=== PATIENT | male | born 1945 | race Caucasian/White ===

== ENCOUNTER 2021-06-17 15:25 | Inpatient (IN) ==
[2021-06-17 16:27] LABS: Partial Thromboplastin Ratio 0.9; Partial Thromboplastin Time 24.2 Seconds (21.0-31.0); Prothrombin Time 10.3 Seconds (9.0-12.0)
[2021-06-17 16:30] LABS: Alanine Aminotransferase 211 (12-78); Albumin Level 3.8 gm/dl (3.4-5.0); Aspartate Aminotransferase 380 U/L (15-37); BUN Creatinine Ratio 22.5 (10-20); Blood Urea Nitrogen 21 mg/dl (7-18); Calcium 8.6 mg/dl (8.5-10.1); Carbon Dioxide 29 mmol/L (21-32); Chloride 104 mmol/L (98-107); Creatinine Clr Calc Pharmacy 65.4 ml/min; Est GFR (African American) 89.1 ml/min; Est GFR (Non-African American) 76.9 ml/min; Glucose 201 mg/dl (70-99); Potassium 3.9 mmol/L (3.5-5.1); Sodium 135 mmol/L (136-145)
[2021-06-17 16:35] LABS: Albumin Globulin Ratio 1.3 (0.9-2); Alkaline Phosphatase 415 U/L (45-117); Bilirubin,Total 1.5 mg/dl (0.2-1); Globulin 2.9 gm/dl (2.5-4.0); Total Protein 6.7 gm/dl (6.4-8.2); Troponin I < 0.015 ng/ml (0-0.045)
[2021-06-17 16:40] LABS: Basophils # (auto) 0.01 K/uL (0-0.2); Basophils % (auto) 0.2 %; Hematocrit (blood only) 35.3 % (42-52); Lymphocytes # (auto) 0.83 K/uL (1.2-3.4); Mean Corpuscular Hemoglobin 31.3 pg (25-34); Mean Corpuscular Volume 92.2 fL (80-100); Mean Platelet Volume 11.6 fL (7.4-10.4); Monocytes # (auto) 0.13 K/uL (0.11-0.59); Monocytes % (auto) 2.7 %; Neutrophils % (auto) 80.1 %; Platelet Count 77 K/uL (130-400); Platelet Estimate Decreased (Normal); RDW Coefficient of Variation 13.7 % (11.5-14.5); RDW Standard Deviation 46.5 fL (36.4-46.3); Red Blood Count 3.83 M/uL (4.7-6.1); White Blood Count 4.87 K/uL (4.8-10.8)
--- NOTE | 2021-06-17 16:48 | Electrocardiogram Report ---
Test Reason : Blood Pressure : / mmHG Vent. Rate : 071 BPM Atrial Rate : 071 BPM P-R Int : 172 ms QRS Dur : 096 ms QT Int : 428 ms P-R-T Axes : 083 017 044 degrees QTc Int : 465 ms Normal sinus rhythm Possible Left atrial enlargement Left ventricular hypertrophy Abnormal ECG No previous ECGs available Confirmed by Evaristo Mireles ([id number]) on 06/17/2021 4:47:48 PM Referred By: Confirmed By:Tristan Mireles
--- NOTE | 2021-06-17 20:07 | XRay Report ---
XR chest 1V portable CLINICAL HISTORY: Chest pain. COMPARISON STUDY: No previous studies for comparison. TECHNIQUE: 1 view of the chest FINDINGS: Single frontal view of the chest demonstrates the cardiomediastinal silhouette to be within normal li mits. The lungs are clear of alveolar opacities. There is no evidence for pleural effusion. There is no evidence for vascular congestion. There is no acute osseous pathology. IMPRESSION: No acute cardiopulmonary disease. ACT 112: Negative or not required by law. Electronically signed by: Modesto Pizarro M.D. 06/17/2021 8:06 PM
[2021-06-17 20:42] LABS: Bilirubin Direct 0.8 mg/dl (0-0.2)
--- NOTE | 2021-06-17 21:05 | Ultrasound Report ---
US gallbladder LIMITED ABDOMEN CLINICAL HISTORY: cp, elev lfts. COMPARISON: None. TECHNIQUE: Multiple grayscale and color images of the right upper quadrant of the abdomen. FINDINGS: The study is limited by overlying bowel gas. Pancreas: Pancreas is not visualized due to the overlying bowel gas. Liver: The liver is homogeneous in echogenicity there is evidence for a 1.2 x 1.2 x 1.0 cm hyperechoi c area within the right lobe of the liver most characteristic of a small hemangioma. No other evidenc e for liver mass is seen. There is no intrahepatic biliary duct dilatation. The liver is of the upper limits of normal measuring 17 cm the axillary margin. Gallbladder: The gallbladder is mildly distended with numerous intraluminal calculi present. Posteri or acoustic shadowing is seen. There is no evidence for wall thickening. There is minimal pericholecy stic edema. However, there is a negative sonographic East sign. Common Bile Duct: (CBD): It is normal in size measuring 6 mm Inferior Vena Cava (IVC): The imaged IVC is patent. Right kidney: There is no evidence for hydronephrosis, calculus or gross renal mass. The kidney is n ormal in size. IMPRESSION: 1. Nonvisualization of pancreas. 2. Liver is upper limits of normal in size with evidence for small hemangioma. No definite evidence f or hepatocellular disease. 3. Cholelithiasis with minimal pericholecystic edema. However, there is a negative sonographic East 's sign with no definite ultrasound evidence for acute cholecystitis. ACT 112: Negative or not required by law. Electronically signed by: Modesto Pizarro M.D. 06/17/2021 9:03 PM
--- NOTE | 2021-06-17 21:21 | Emergency Department Note ---
Impression & Plan Epigastric abdominal pain, Transaminitis, Cholelithiasis ED Provider Note NAME: VANDA WILLIS AGE: 75 SEX: M ARRIVES VIA: Walk-In INFORMANT: Patient ED PROVIDER(S): Mateusz Dawn MD CHIEF COMPLAINT: Chest pain/abdominal pain PLAN: Disposition: Admit MEDICAL DECISION MAKING: The patient is a pleasant 75-year-old gentleman with a past medical history of hypertension, hyperlipidemia, GERD who presents to the emergency department for evaluation of substernal/epigastric pain that began around noon today and was constant with associated nausea. The patient reports he had to pick his up today at the hospital as she was being discharged after suffering a traumatic fall but his pain was so severe he was referred to the emergency department. He reports since being in the emergency department he felt the symptoms resolve and at this time denies any pain or nausea. He denies any recent fevers, chills, cough, congestion, diarrhea or urinary symptoms. He is vaccinated for COVID-19 including his booster and denies any known COVID-19 exposures. On arrival the patient is in no acute distress, afebrile with blood pressure in the 190s/80s and vital signs otherwise stable. EKG without overt acute ischemia. Chest x-ray negative for acute cardiopulmonary process. WBC within normal limits. H/H 12/35.3 and platelets 77K without prior values for comparison. Chemistry without metabolic acidosis. BUN/creatinine> 20 consistent with the patient's clinically dry appearance. Total bilirubin 1.5 with direct bilirubin 0.8 and AST and ALT 380 and 211, respectively. Alk phos is 415. Troponin negative/undetectable. Lipase is within normal limits. Abdominal ultrasound was performed and demonstrates mildly distended gallbladder with intraluminal calculi with posterior acoustic shadowing. There is minimal pericholecystic edema. CBD is normal in size measuring 6 mm. Note is made of a negative sonographic East sign. Upon reevaluation the patient denied having any pain or nausea at this time. However given the obstructive pattern of his LFTs with ultrasound findings reasonable to admit the patient for further evaluation for suspected choledocholithiasis. Patient agrees with this plan. Case was discussed with Dr. Bella, [facility] hospitalist, who will evaluate the patient for admission. Triage Nursing notes reviewed and agree them. Prior medical records reviewed Vital Signs: reviewed and remarkable for hypertension. Differential diagnosis: Appendicitis, testicular torsion, infections, diverticulitis, UTI, obstruction, mesenteric ischemia, aortic pathology, inflammatory bowel disease, renal colic, PUD, pancreatitis, biliary pathology, hernia, volvulus, constipation, as well as other pathologies. ER treatment provided: See below. Diagnostics interpreted by me: ECG: Normal sinus rhythm, 86 bpm, no ectopy, no overt ST elevation or d epression, QTC 442, QRS 86. Cardiac Monitoring: An order for continuous cardiac monitoring was placed and demonstrated normal sinus rhythm, 86 bpm, no ectopy. Laboratory studies: See below Imaging studies: See below Consultation(s): Case was discussed with Dr. Bella, [facility] hospitalist, who will evaluate the patient for admission. HPI: The patient is a pleasant 75-year-old gentleman with a past medical history of hypertension, hyperlipidemia, GERD who presents to the emergency department for evaluation of substernal/epigastric pain that began around noon today and was constant with associated nausea. The patient reports he had to pick his up today at the hospital as she was being discharged after suffering a traumatic fall but his pain was so severe he was referred to the emergency department. He reports since being in the emergency department he felt the symptoms resolve and at this time denies any pain or nausea. He denies any recent fevers, chills, cough, congestion, diarrhea or urinary symptoms. He is vaccinated for COVID-19 including his booster and denies any known COVID-19 exposures. ROS: See above HPI for pertinent positives & negatives. A total of 10 systems reviewed and were otherwise negative. PAST MEDICAL HISTORY:See Below PAST SURGICAL HISTORY:See Below FAMILY HISTORY:See Below SOCIAL HISTORY:See Below HOME MEDICATIONS:See Below ALLERGIES:See Below VITALS:See Below PHYSICAL EXAMINATION: GENERAL: Awake, alert, well-appearing, in no distress HENT: Normocephalic, atraumatic. Oropharynx with dry mucous membranes and otherwise unremarkable. EYES: Normal conjunctiva. Sclera non-icteric. NECK: Supple. No nuchal rigidity. FROM. No JVD. RESPIRATORY: Clear to auscultation. CARDIAC: Regular rate, normal rhythm. Extremities warm and well perfused. Pulses equal. ABDOMEN: Soft, non-distended. No tenderness to palpation. No rebound or guarding. No masses. RECTAL: Deferred. MUSCULOSKELETAL: Chest examination reveals no tenderness. The back is symmetrical on inspection without obvious abnormality. There is no CVA tenderness to palpation. No joint edema. LOWER EXTREMITIES: Calves are equal size bilaterally and non-tender. No edema. No discoloration. NEURO: Normal sensorium. No sensory or motor deficits noted. SKIN: No rash or jaundice noted. Mateusz Dawn MD Past Med/Surg History Medical History GERD (gastroesophageal reflux disease) Hyperlipidemia Hypertension Family History Other Family history non-contributory Social History Feels Safe at Home: Yes Allergies Allergies Allergy/AdvReac Type Severity Reaction Status Date / Time No Known Allergies Allergy Unverified 06/17/21 20:26 Home Meds Home Medications Medication Instructions Recorded Confirmed atorvastatin 20 mg tablet 20 mg PO DAILY 06/17/21 06/17/21 citalopram 20 mg tablet 20 mg PO DAILY 06/17/21 06/17/21 finasteride 5 mg tablet 5 mg PO DAILY 06/17/21 06/17/21 lisinopril 20 mg tablet 20 mg PO DAILY 06/17/21 06/17/21 omeprazole 20 mg tablet,delayed 20 mg PO DAILY 06/17/21 06/17/21 release Results & Data (ED) Vital Signs Vital Signs - 24 hr 06/17/21 15:28 06/17/21 20:01 06/17/21 21:00 Temperature 37.0 C Temperature Source Temporal Artery Scan Pulse Rate 75 Pulse Rate [Apical] 62 74 Respiratory Rate 18 20 20 Respiratory Effort / Characteristics Non-Labored Spontaneous Non-Labored Spontaneous Respiratory Depth Normal Normal Respiratory Pattern Regular Blood Pressure 193/86 H Blood Pressure [Right Arm] 209/96 H 173/104 H Blood Pressure Mean 121 Blood Pressure Mean [Right Arm] 133 127 Blood Pressure Position Sitting Blood Pressure Position [Right Arm] Sitting Pulse Oximetry 98 100 99 Oxygen Delivery Method Room Air Room Air Room Air Sepsis Recent Fever Within 48 Hours No Sepsis New/Unexplained Change in Mental Status No Sepsis Action Taken by Nursing No Action Required 06/17/21 22:00 Temperature Temperature Source Pulse Rate Pulse Rate [Apical] 63 Respiratory Rate 16 Respiratory Effort / Characteristics Respiratory Depth Respiratory Pattern Blood Pressure Blood Pressure [Right Arm] 153/75 H Blood Pressure Mean Blood Pressure Mean [Right Arm] 101 Blood Pressure Position Blood Pressure Position [Right Arm] Pulse Oximetry 96 Oxygen Delivery Method Room Air Sepsis Recent Fever Within 48 Hours Sepsis New/Unexplained Change in Mental Status Sepsis Action Taken by Nursing Laboratory Data Attestation: I reviewed the patient's lab results. Result diagrams: 06/17/21 16:00 06/17/21 16:00 Lab Results 06/17/21 06/17/21 06/17/21 Range/Units 16:00 16:00 16:00 WBC 4.87 (4.8-10.8) K/uL RBC 3.83 L (4.7-6.1) M/uL Hgb 12.0 L (14.0-18.0) g/dL Hct 35.3 L (42-52) % MCV 92.2 (80-100) fL MCH 31.3 (25-34) pg MCHC 34.0 (32-36) g/dL RDW Std Deviation 46.5 H (36.4-46.3) fL RDW Coeff of [place] 13.7 (11.5-14.5) % Plt Count 77 L (130-400) K/uL MPV 11.6 H (7.4-10.4) fL Immature Gran % (Auto) 0.0 % Neut % (Auto) 80.1 % Lymph % (Auto) 17.0 % Creek % (Auto) 2.7 % Eos % (Auto) 0.0 % Baso % (Auto) 0.2 % Neut # (Auto) 3.90 (1.4-6.5) K/uL Lymph # (Auto) 0.83 L (1.2-3.4) K/uL Creek # (Auto) 0.13 (0.11-0.59) K/uL Eos # (Auto) 0.00 (0-0.5) K/uL Baso # (Auto) 0.01 (0-0.2) K/uL Immature Gran # (Auto) 0.00 (0.00-0.02) K/uL Platelet Estimate Decreased L (Normal) PT 10.3 (9.0-12.0) Seconds INR 1.0 (0.9-1.1) APTT 24.2 (21.0-31.0) Seconds PTT Ratio 0.9 Sodium 135 L (136-145) mmol/L Potassium 3.9 (3.5-5.1) mmol/L Chloride 104 (98-107) mmol/L Carbon Dioxide 29 (21-32) mmol/L Anion Gap 2.0 L (3-11) BUN 21 H (7-18) mg/dl Creatinine 0.95 (0.6-1.4) mg/dl Est Cr Clr Drug Dosing 65.4 ml/min Est GFR ( Amer) 89.1 ml/min Est GFR (Non-Af Amer) 76.9 ml/min BUN/Creatinine Ratio 22.5 H (10-20) Glucose 201 H (70-99) mg/dl Calcium 8.6 (8.5-10.1) mg/dl Total Bilirubin 1.5 H (0.2-1) mg/dl Direct Bilirubin (0-0.2) mg/dl AST 380 H (15-37) U/L ALT 211 H (12-78) Alkaline Phosphatase 415 H (45-117) U/L Troponin I < 0.015 (0-0.045) ng/ml Total Protein 6.7 (6.4-8.2) gm/dl Albumin 3.8 (3.4-5.0) gm/dl Globulin 2.9 (2.5-4.0) gm/dl Albumin/Globulin Ratio 1.3 (0.9-2) Lipase (73-393) U/L SARS-CoV-2, RNA, NAAT (NEGATIVE) 06/17/21 06/17/21 Range/Units 16:00 21:15 WBC (4.8-10.8) K/uL RBC (4.7-6.1) M/uL Hgb (14.0-18.0) g/dL Hct (42-52) % MCV (80-100) fL MCH (25-34) pg MCHC (32-36) g/dL RDW Std Deviation (36.4-46.3) fL RDW Coeff of [place] (11.5-14.5) % Plt Count (130-400) K/uL MPV (7.4-10.4) fL Immature Gran % (Auto) % Neut % (Auto) % Lymph % (Auto) % Creek % (Auto) % Eos % (Auto) % Baso % (Auto) % Neut # (Auto) (1.4-6.5) K/uL Lymph # (Auto) (1.2-3.4) K/uL Creek # (Auto) (0.11-0.59) K/uL Eos # (Auto) (0-0.5) K/uL Baso # (Auto) (0-0.2) K/uL Immature Gran # (Auto) (0.00-0.02) K/uL Platelet Estimate (Normal) PT (9.0-12.0) Seconds INR (0.9-1.1) APTT (21.0-31.0) Seconds PTT Ratio Sodium (136-145) mmol/L Potassium (3.5-5.1) mmol/L Chloride (98-107) mmol/L Carbon Dioxide (21-32) mmol/L Anion Gap (3-11) BUN (7-18) mg/dl Creatinine (0.6-1.4) mg/dl Est Cr Clr Drug Dosing ml/min Est GFR ( Amer) ml/min Est GFR (Non-Af Amer) ml/min BUN/Creatinine Ratio (10-20) Glucose (70-99) mg/dl Calcium (8.5-10.1) mg/dl Total Bilirubin (0.2-1) mg/dl Direct Bilirubin 0.8 H (0-0.2) mg/dl AST (15-37) U/L ALT (12-78) Alkaline Phosphatase (45-117) U/L Troponin I (0-0.045) ng/ml Total Protein (6.4-8.2) gm/dl Albumin (3.4-5.0) gm/dl Globulin (2.5-4.0) gm/dl Albumin/Globulin Ratio (0.9-2) Lipase 188 (73-393) U/L SARS-CoV-2, RNA, NAAT NEGATIVE (NEGATIVE) Administered Medications Sodium Chloride (Nss 1000ml) 1,000 mls @ 125 mls/hr IV .Q8H ETHAN Stop: 07/18/21 01:25 Last Admin: 06/18/21 01:38 Dose: 125 mls/hr Documented by: [id number] Discontinued Medications Al Hydrox/Mg Hydrox/Simethicone (Aluminum/Magnesium/Simeth (Maalox Max) 30 Ml Udc) 30 ml PO NOW STA Stop: 06/18/21 00:44 Last Admin: 06/18/21 01:35 Dose: 30 ml Documented by: [id number] Sodium Chloride (Nss 1000ml) 1,000 mls @ 125 mls/hr IV .Q8H ETHAN Stop: 07/17/21 21:29 Last Admin: 06/17/21 21:36 Dose: 125 mls/hr Documented by: [id number] Imaging Data Radiologist's Impression: Chest X-Ray 06/17/21 19:12 XR chest 1V portable CLINICAL HISTORY: Chest pain. COMPARISON STUDY: No previous studies for comparison. TECHNIQUE: 1 view of the chest FINDINGS: Single frontal view of the chest demonstrates the cardiomediastinal silhouette to be within normal limits. The lungs are clear of alveolar opacities. There is no evidence for pleural effusion. There is no evidence for vascular congestion. There is no acute osseous pathology. IMPRESSION: No acute cardiopulmonary disease. ACT 112: Negative or not required by law. Electronically signed by: Modesto Pizarro M.D. 06/17/2021 8:06 PM Gallbladder Ultrasound 06/17/21 19:12 US gallbladder LIMITED ABDOMEN CLINICAL HISTORY: cp, elev lfts. COMPARISON: None. TECHNIQUE: Multiple grayscale and color images of the right upper quadrant of the abdomen. FINDINGS: The study is limited by overlying bowel gas. Pancreas: Pancreas is not visualized due to the overlying bowel gas. Liver: The liver is homogeneous in echogenicity there is evidence for a 1.2 x 1.2 x 1.0 cm hyperechoic area within the right lobe of the liver most charac teristic of a small hemangioma. No other evidence for liver mass is seen. There is no intrahepatic biliary duct dilatation. The liver is of the upper limits of normal measuring 17 cm the axillary margin. Gallbladder: The gallbladder is mildly distended with numerous intraluminal calculi present. Posterior acoustic shadowing is seen. There is no evidence for wall thickening. There is minimal pericholecystic edema. However, there is a negative sonographic East sign. Common Bile Duct: (CBD): It is normal in size measuring 6 mm Inferior Vena Cava (IVC): The imaged IVC is patent. Right kidney: There is no evidence for hydronephrosis, calculus or gross renal mass. The kidney is normal in size. IMPRESSION: 1. Nonvisualization of pancreas. 2. Liver is upper limits of normal in size with evidence for small hemangioma. No definite evidence for hepatocellular disease. 3. Cholelithiasis with minimal pericholecystic edema. However, there is a negative sonographic East's sign with no definite ultrasound evidence for acute cholecystitis. ACT 112: Negative or not required by law. Electronically signed by: Modesto Pizarro M.D. 06/17/2021 9:03 PM Discharge Plan Visit Data Chief Complaint: Chest Pain Stated Complaint: CHEST PAIN, NAUSEA ED Provider: Mateusz Dawn Discharge Problem: Epigastric abdominal pain, Transaminitis, Cholelithiasis Patient Disposition: Admitted As Inpatient Discharge Instructions Interventions: ED Discharge Assessment Last Done: 06/18/21 00:52 Discharge Problem: Cholelithiasis Qualifiers: Cholelithiasis location: gallbladder Cholecystitis presence: without cholecystitis
[2021-06-17] MEDS ORDERED: ONDANSETRON INJ 2 MG/ML 2 ML VIAL IV PRN (21:25)
[2021-06-17] MEDS ORDERED: SODIUM CHLORIDE 0.9% 1000ML 1,000 ML IV SCH (21:30)
[2021-06-18] MEDS ORDERED: ALUMINUM/MAGNESIUM/SIMETH (MAALOX MAX) 30 ML UDC PO STA (00:43)
[2021-06-18] MEDS ORDERED: PIPERACILL/TAZOBAC CONSULT ACTIVE PRN (01:26)
[2021-06-18] MEDS ORDERED: ACETAMINOPHEN 325 MG TAB PO PRN (01:26)
[2021-06-18] MEDS ORDERED: HYDROmorphone INJ 0.5 MG/0.5 ML SYR IV PRN (01:26)
[2021-06-18] MEDS ORDERED: ONDANSETRON INJ 2 MG/ML 2 ML VIAL IV PRN (01:26)
[2021-06-18] MEDS: SODIUM CHLORIDE 0.9% 1000ML 1,000 ML IV SCH ×3 (01:38→17:07)
[2021-06-18] MEDS ORDERED: PIPERACILLIN/TAZOBACTAM 4.5 GM in DEXTROSE 5% 100 ML IV ONE (01:45)
[2021-06-18] MEDS: FAMOTIDINE 20 MG in SYRINGE 3 ML IV SCH ×3 (02:05→21:52)
[2021-06-18 05:33] LABS: Hematocrit (blood only) 31.7 % (42-52); Hemoglobin 10.8 g/dL (14.0-18.0); Mean Corpuscular Hemoglobin 31.1 pg (25-34); Mean Corpuscular Hgb Conc 34.1 g/dL (32-36); Mean Corpuscular Volume 91.4 fL (80-100); RDW Coefficient of Variation 13.8 % (11.5-14.5); RDW Standard Deviation 45.5 fL (36.4-46.3); Red Blood Count 3.47 M/uL (4.7-6.1); White Blood Count 3.35 K/uL (4.8-10.8)
[2021-06-18 05:54] LABS: Basophils # (auto) 0.02 K/uL (0-0.2); Basophils % (auto) 0.6 %; Lymphocytes # (auto) 1.03 K/uL (1.2-3.4); Lymphocytes % (auto) 30.7 %; Mean Platelet Volume 10.9 fL (7.4-10.4); Monocytes # (auto) 0.27 K/uL (0.11-0.59); Monocytes % (auto) 8.1 %; Neutrophils # (auto) 2.03 K/uL (1.4-6.5); Neutrophils % (auto) 60.6 %; Platelet Count 72 K/uL (130-400); Platelet Estimate Decreased (Normal); RBC Morphology Unremarkable
[2021-06-18 06:07] LABS: Alanine Aminotransferase 174 (12-78); Albumin Level 3.3 gm/dl (3.4-5.0); Alkaline Phosphatase 316 U/L (45-117); Aspartate Aminotransferase 116 U/L (15-37); BUN Creatinine Ratio 20.9 (10-20); Bilirubin Direct 0.4 mg/dl (0-0.2); Bilirubin,Total 1.1 mg/dl (0.2-1); Blood Urea Nitrogen 18 mg/dl (7-18); Calcium 8.6 mg/dl (8.5-10.1); Carbon Dioxide 28 mmol/L (21-32); Chloride 110 mmol/L (98-107); Creatinine Clr Calc Pharmacy 71.3 ml/min; Est GFR (African American) 97.4 ml/min; Glucose 141 mg/dl (70-99); Magnesium 1.8 mg/dl (1.8-2.4); Potassium 3.7 mmol/L (3.5-5.1); Sodium 141 mmol/L (136-145); Total Protein 5.9 gm/dl (6.4-8.2); Troponin I < 0.015 ng/ml (0-0.045)
[2021-06-18] MEDS: PIPERACILLIN/TAZOBACTAM 3.375 GM in DEXTROSE 5% 100 ML IV SCH ×2 (06:48→15:40)
[2021-06-18 07:22] LABS: Estimated Average Glucose 151 mg/dl; Hemoglobin A1C 6.9 % (4.5-5.6)
--- NOTE | 2021-06-18 07:40 | History and Physical Report ---
DATE OF ADMISSION: 06/17/2021. CHIEF COMPLAINT: The patient has epigastric and chest pain. HISTORY OF PRESENT ILLNESS: A 75-year-old male with past medical history significant for type 2 diabetes, hypertension, GERD, BPH, essential tremor, depression, who presents with pain of the chest and also in the epigastric region. The pain started in the afternoon and was constant, associated with nausea. Since in the ER, his symptoms are resolved. The patient is currently resting comfortably and hemodynamically stable. He does not have any pain. Denies any headache, no dizziness, no blurred visions, no earache, no runny nose, no sore throat. No cough. Currently, no nausea. Currently, no chest pain, no shortness of breath, no abdominal pain. Normal bowel and bladder movements. He has some pain in the right thigh region because of the fall about a week ago. ALLERGIES: No known drug allergies. PAST MEDICAL HISTORY: As mentioned above. PAST SURGICAL HISTORY: No past surgical history on file. MEDICATIONS: The patient is on atorvastatin 20 mg p.o. daily, citalopram 20 mg p.o. daily, finasteride 5 mg p.o. daily, lisinopril 20 mg p.o. daily, omeprazole 20 mg p.o. daily, propranolol 40 mg p.o. daily. FAMILY HISTORY: No family history on file. SOCIAL HISTORY: . No smoking. Drinks 3 beers on the weekend.No history of substance abuse. REVIEW OF SYSTEMS: As per HPI. Rest of the review of systems is negative. PHYSICAL EXAMINATION: GENERAL: The patient is of moderate build, not in acute distress. VITAL SIGNS: Temperature 37, pulse 63, respiratory rate 16, blood pressure 153/75, oxygen 96% on room air. HEENT: Pupils equal, round and reactive to light. Oral mucosa moist. NECK: No JVD. No neck masses. CARDIOVASCULAR: S1 and S2 heard. Regular rate and rhythm. No murmur, no gallop. RESPIRATORY SYSTEM: Normal AP diameter. No accessory muscle use. No wheezing, no crackles. ABDOMEN: Soft, bowel sounds present, nontender, no distention. CENTRAL NERVOUS SYSTEM: Cranial nerves II-XII grossly intact, nonfocal. EXTREMITIES: No edema, no erythema. LABORATORY DATA: WBC 4.8, hemoglobin 12, hematocrit 35.3, platelets 77. PT 10.3, INR 1, APTT 24.2. Sodium 135, potassium 3.9, chloride 104, bicarb 29, BUN 21, creatinine 0.9, serum glucose 201, calcium 8.6, total bilirubin 1.5, direct bilirubin 0.8, AST 380, ALT 211, alkaline phosphatase 415. Troponin I less than 0.015. Lipase 188. SARS-CoV-2 negative. IMAGING DATA: Gallbladder ultrasound, liver is in upper limits of normal in size with evidence of small hemangioma. No definite evidence for hepatocellular disease. Cholelithiasis with minimal pericholecystic edema, although there is negative for sonographic East sign, with no definite ultrasound evidence for acute cholecystitis. Chest x-ray, no acute disease. EKG: Normal sinus rhythm at a rate of 71. No previous ECGs available. Possible left ventricular hypertrophy. ASSESSMENT AND PLAN: This 75-year-old male presents with chest pain, epigastric pain, nausea, possible gallbladder disease. 1. Epigastric pain, chest pain, currently resolved: Initial workup with EKG and troponins is negative. Gallbladder ultrasound shows gallstones with minimal pericholecystic edema. No ultrasonic evidence of cholecystitis, but the patient might have possible cholecystitis. We will also rule out any possible CBD stone because of elevated LFTs, with MRCP. Empirically started on Zosyn. Continue IV fluids, n.p.o. Consult GI in the a.m. IV Dilaudid and IV antiemetics p.r.n. Also, we will repeat EKG and repeat troponin in a.m.and echo and cardio consult. 2. History of depression: Continue citalopram. 3. History of hyperlipidemia: Continue statin. 4. Gastroesophageal reflux disease: Continue omeprazole. Placed on IV Pepcid b.i.d. 5. Benign prostatic hypertrophy: Continue finasteride. 6. Hypertension: On lisinopril. 7. Hx essential tremors. No longer on propranolol 8.. Thrombocytopenia: We do not have any old labs to compare. Needs followup. 8. Deep venous thrombosis prophylaxis: Sequential compression devices. DISPOSITION: Closely monitor in the med/tele. PT/OT prior to discharge. Social service to help with discharge planning. Job ID: [id number] [facility]
--- NOTE | 2021-06-18 08:30 | Magnetic Resonance Report ---
MR MRCP CLINICAL HISTORY: elevated lft. Cholelithiasis. Evaluate for cbd stone . Additional chest pain TECHNIQUE: Multiplanar multisequence images of the abdomen were performed without contrast. MRCP aline ges were then generated from source images. COMPARISON: Gallbladder ultrasound from 06/17/2021 FINDINGS: Liver: There is homogeneous signal intensity seen within the liver. No mass lesions are seen. There i s no evidence for intrahepatic or duct dilatation. Suspected small hemangioma on ultrasound is not se en on this study. CT of the liver with hemangioma protocol would be the study of choice for further e valuation. Gallbladder: As seen on ultrasound, the gallbladder is distended with cholelithiasis. There is again no evidence for wall thickening. However, there is pericholecystic edema again seen. Spleen: There is homogeneous signal throughout the splenic parenchyma. No mass lesions are seen. Ther e is splenomegaly with the spleen measuring 14.9 cm in greatest length. Pancreas: The pancreas is homogeneous in signal There is no evidence for a mass lesion. Kidneys: There is homogeneous signal throughout the renal parenchyma bilaterally. The right kidney is rotated in its axis. Adrenal glands: There is homogeneous signal demonstrated with no gross mass seen. Abdominal cavity: There is no gross bowel dilatation. There is no evidence for ascites or adenopathy. The aorta is normal in caliber. The visualized osseous structures, demonstrate no evidence of abnormal signal intensity. MRCP: The common bile duct is normal in course and caliber. There is no evidence for dilatation. Ther e is no intraluminal filling defects or evidence for choledocholithiasis. There is no intrahepatic or duct dilatation. IMPRESSION: 1. Negative MRCP with no evidence for common bile duct dilatation or choledocholithiasis. 2. There is again distention of the gallbladder with cholelithiasis. Mild pericholecystic edema is ag ain seen. If there is clinical concern for acute cholecystitis. Radionuclide hepatobiliary scan would be recommended for further evaluation. 3. Additional nonacute findings are delineated above. ACT 112: Negative or not required by law. Electronically signed by: Modesto Pizarro M.D. 06/18/2021 8:28 AM
--- NOTE | 2021-06-18 08:56 | Cardiology Consultation ---
Date of Consultation June 18, 2021 Assessment & Plan (1) Hypertension: (2) Atypical chest pain: (3) Epigastric abdominal pain: (4) Transaminitis: (5) Cholelithiasis: Patient admitted for atypical chest pain, more likely epigastric pain with elevated LFT's and findings of cholelithiasis. Serial cardiac enzymes unremarkable. EKG without acute changes, findings of LVH. Echo was completed and results pending. No prior evaluation. Long history of hypertension. BP uncontrolled. Increase lisinopril to 40 mg daily. Await GI evaluation and treatment for cholelithiasis. Case discussed with Dr. Wu. Supervising Physician Co-Signing Physician Notes Patient seen and examined with Sarah Downey PA-C. Agree with findings and assessment as above. At this point, I do not see any cardiac component to his chest and abdominal discomfort. We will defer further treatment to our GI colleagues at this time for cholelithiasis History of Present Illness Reason for Consultation: Atypical chest pain Requesting Physician: Dr. Bella Attending Physician: Dr. Wu History of Present Illness Patient is a 75 year old male who has history notable for hypertension, dyslipidemia, DM type II, essential tremors. He denies history of cardiovascular issues. No prior history of CAD, NC, valvular disease, arrhythmias or CHF. He came to ER for complaints of epigastric and chest pain lasting approx 2 days associated with nausea. No vomiting. No aggravating or alleviating factors. Noted mild abdominal pain as well. On arrival, EKG demonstrating NSR with voltage criteria for LVH. no prior EKG for comparioson. Echo was ordered and results pending. Troponin negative x3. Found to have elevated LFT"s. US revealed gallstones. Had MRCP yesterday. GI following. Today at time of consult, patient reports feeling well. Denies recurrent symptoms of chest pain or epigastric pain. Awaiting GI eval and MRCP results. No SOB. NO palpitations. BP has been elevated since admission. He does not monitor BP at home. Takes lisinopril for BP. Previously was taking propranolol for tremors but stopped medication about 2 months ago due to ineffectiveness. No headache or vision changes. No orthopnea, PND or edema. Allergies Allergy/AdvReac Type Severity Reaction Status Date / Time No Known Allergies Allergy Unverified 06/17/21 20:26 Home Medications Medication Instructions Recorded Confirmed Type atorvastatin 20 mg tablet 20 mg PO DAILY 06/17/21 06/17/21 History citalopram 20 mg tablet 20 mg PO DAILY 06/17/21 06/17/21 History finasteride 5 mg tablet 5 mg PO DAILY 06/17/21 06/17/21 History lisinopril 20 mg tablet 20 mg PO DAILY 06/17/21 06/17/21 History omeprazole 20 mg tablet,delayed 20 mg PO DAILY 06/17/21 06/17/21 History release Patient History Medical History GERD (gastroesophageal reflux disease) Hyperlipidemia Hypertension Family History Other Family history non-contributory Social History Smoking Status: Former smoker Second Hand Exposure: No; Do You Dip or Chew Tobacco: No; Hx Alcohol Use: Yes Alcohol type: beer Hx Substance Use: No Preferred Language: [place] Communication Ability: Effective Edge Molder Required: No Beliefs That Will Affect Care: None Current Living Situation: Spouse Other Information That Helps Us Care for You: No Feels Safe at Home: Yes Safety Concerns: Feels Safe At This Time Assistive Devices: None Review of Systems Review of Systems: All systems reviewed & are unremarkable except as noted in HPI & below Physical Exam Constitutional: WD/WN, vitals as above well developed; no acute distress ENMT: external ear and nose normal, oropharynx normal Neck: trachea midline, no thyromegaly Respiratory: normal respiratory effort, lungs clear to auscultation Cardiovascular: Rate/Rhythm: regular rate and regular rhythm Heart Sounds: normal S1 and normal S2; no murmur Vessels: no JVD Extremities: no edema Gastrointestinal (Abdomen): normal bowel sounds, soft, nontender, no hepatosplenomegaly Musculoskeletal: no cyanosis or clubbing, extremities motor strength 5/5 Skin: no rashes, warm and dry Neurologic: PERRL, EOMI, accommodation nl, no face palsy, no dysarthria Psychiatric: A+Ox3, euthymic affect Results & Data ([facility]) Vital Signs (Past 12 Hours) Vital Signs Temp Pulse Resp BP Pulse Ox 12/30/21 03:59 36.8 C 67 18 186/94 H 96 06/18/21 01:20 36.7 C 66 20 186/94 H 96 06/18/21 00:00 36.7 C 74 19 194/80 H 94 06/17/21 22:00 63 16 153/75 H 96 06/17/21 21:00 74 20 173/104 H 99 Laboratory Results 06/18/21 06/18/21 06/18/21 Range/Units 05:16 05:16 05:16 WBC 3.35 L (4.8-10.8) K/uL RBC 3.47 L (4.7-6.1) M/uL Hgb 10.8 L (14.0-18.0) g/dL Hct 31.7 L (42-52) % MCV 91.4 (80-100) fL MCH 31.1 (25-34) pg MCHC 34.1 (32-36) g/dL RDW Std Deviation 45.5 (36.4-46.3) fL RDW Coeff of [place] 13.8 (11.5-14.5) % Plt Count 72 L (130-400) K/uL MPV 10.9 H (7.4-10.4) fL Immature Gran % (Auto) 0.0 % Neut % (Auto) 60.6 % Lymph % (Auto) 30.7 % Woodson % (Auto) 8.1 % Eos % (Auto) 0.0 % Baso % (Auto) 0.6 % Neut # (Auto) 2.03 (1.4-6.5) K/uL Lymph # (Auto) 1.03 L (1.2-3.4) K/uL Woodson # (Auto) 0.27 (0.11-0.59) K/uL Eos # (Auto) 0.00 (0-0.5) K/uL Baso # (Auto) 0.02 (0-0.2) K/uL Immature Gran # (Auto) 0.00 (0.00-0.02) K/uL Platelet Estimate Decreased L (Normal) RBC Morphology Unremarkable PT (9.0-12.0) Seconds INR (0.9-1.1) APTT (21.0-31.0) Seconds PTT Ratio Sodium 141 (136-145) mmol/L Potassium 3.7 (3.5-5.1) mmol/L Chloride 110 H (98-107) mmol/L Carbon Dioxide 28 (21-32) mmol/L Anion Gap 3.0 (3-11) BUN 18 (7-18) mg/dl Creatinine 0.85 (0.6-1.4) mg/dl Est Cr Clr Drug Dosing 71.3 ml/min Est GFR ( Amer) 97.4 ml/min Est GFR (Non-Af Amer) 84.0 ml/min BUN/Creatinine Ratio 20.9 H (10-20) Glucose 141 H (70-99) mg/dl Estimat Average Glucose 151 mg/dl Hemoglobin A1c 6.9 H (4.5-5.6) % Calcium 8.6 (8.5-10.1) mg/dl Magnesium 1.8 (1.8-2.4) mg/dl Total Bilirubin 1.1 H (0.2-1) mg/dl Direct Bilirubin 0.4 H (0-0.2) mg/dl AST 116 H (15-37) U/L ALT 174 H (12-78) Alkaline Phosphatase 316 H D (45-117) U/L Troponin I < 0.015 (0-0.045) ng/ml Total Protein 5.9 L (6.4-8.2) gm/dl Albumin 3.3 L (3.4-5.0) gm/dl Globulin (2.5-4.0) gm/dl Albumin/Globulin Ratio (0.9-2) Lipase (73-393) U/L SARS-CoV-2, RNA, NAAT (NEGATIVE) 06/17/21 06/17/21 06/17/21 Range/Units 21:15 16:00 16:00 WBC (4.8-10.8) K/uL RBC (4.7-6.1) M/uL Hgb (14.0-18.0) g/dL Hct (42-52) % MCV (80-100) fL MCH (25-34) pg MCHC (32-36) g/dL RDW Std Deviation (36.4-46.3) fL RDW Coeff of [place] (11.5-14.5) % Plt Count (130-400) K/uL MPV (7.4-10.4) fL Immature Gran % (Auto) % Neut % (Auto) % Lymph % (Auto) % Woodson % (Auto) % Eos % (Auto) % Baso % (Auto) % Neut # (Auto) (1.4-6.5) K/uL Lymph # (Auto) (1.2-3.4) K/uL Woodson # (Auto) (0.11-0.59) K/uL Eos # (Auto) (0-0.5) K/uL Baso # (Auto) (0-0.2) K/uL Immature Gran # (Auto) (0.00-0.02) K/uL Platelet Estimate (Normal) RBC Morphology PT (9.0-12.0) Seconds INR (0.9-1.1) APTT (21.0-31.0) Seconds PTT Ratio Sodium 135 L (136-145) mmol/L Potassium 3.9 (3.5-5.1) mmol/L Chloride 104 (98-107) mmol/L Carbon Dioxide 29 (21-32) mmol/L Anion Gap 2.0 L (3-11) BUN 21 H (7-18) mg/dl Creatinine 0.95 (0.6-1.4) mg/dl Est Cr Clr Drug Dosing 65.4 ml/min Est GFR ( Amer) 89.1 ml/min Est GFR (Non-Af Amer) 76.9 ml/min BUN/Creatinine Ratio 22.5 H (10-20) Glucose 201 H (70-99) mg/dl Estimat Average Glucose mg/dl Hemoglobin A1c (4.5-5.6) % Calcium 8.6 (8.5-10.1) mg/dl Magnesium (1.8-2.4) mg/dl Total Bilirubin 1.5 H (0.2-1) mg/dl Direct Bilirubin 0.8 H (0-0.2) mg/dl AST 380 H (15-37) U/L ALT 211 H (12-78) Alkaline Phosphatase 415 H (45-117) U/L Troponin I < 0.015 (0-0.045) ng/ml Total Protein 6.7 (6.4-8.2) gm/dl Albumin 3.8 (3.4-5.0) gm/dl Globulin 2.9 (2.5-4.0) gm/dl Albumin/Globulin Ratio 1.3 (0.9-2) Lipase 188 (73-393) U/L SARS-CoV-2, RNA, NAAT NEGATIVE (NEGATIVE) 06/17/21 06/17/21 Range/Units 16:00 16:00 WBC 4.87 (4.8-10.8) K/uL RBC 3.83 L (4.7-6.1) M/uL Hgb 12.0 L (14.0-18.0) g/dL Hct 35.3 L (42-52) % MCV 92.2 (80-100) fL MCH 31.3 (25-34) pg MCHC 34.0 (32-36) g/dL RDW Std Deviation 46.5 H (36.4-46.3) fL RDW Coeff of [place] 13.7 (11.5-14.5) % Plt Count 77 L (130-400) K/uL MPV 11.6 H (7.4-10.4) fL Immature Gran % (Auto) 0.0 % Neut % (Auto) 80.1 % Lymph % (Auto) 17.0 % Woodson % (Auto) 2.7 % Eos % (Auto) 0.0 % Baso % (Auto) 0.2 % Neut # (Auto) 3.90 (1.4-6.5) K/uL Lymph # (Auto) 0.83 L (1.2-3.4) K/uL [place]son # (Auto) 0.13 (0.11-0.59) K/uL Eos # (Auto) 0.00 (0-0.5) K/uL Baso # (Auto) 0.01 (0-0.2) K/uL Immature Gran # (Auto) 0.00 (0.00-0.02) K/uL Platelet Estimate Decreased L (Normal) RBC Morphology PT 10.3 (9.0-12.0) Seconds INR 1.0 (0.9-1.1) APTT 24.2 (21.0-31.0) Seconds PTT Ratio 0.9 Sodium (136-145) mmol/L Potassium (3.5-5.1) mmol/L Chloride (98-107) mmol/L Carbon Dioxide (21-32) mmol/L Anion Gap (3-11) BUN (7-18) mg/dl Creatinine (0.6-1.4) mg/dl Est Cr Clr Drug Dosing ml/min Est GFR ( Amer) ml/min Est GFR (Non-Af Amer) ml/min BUN/Creatinine Ratio (10-20) Glucose (70-99) mg/dl Estimat Average Glucose mg/dl Hemoglobin A1c (4.5-5.6) % Calcium (8.5-10.1) mg/dl Magnesium (1.8-2.4) mg/dl Total Bilirubin (0.2-1) mg/dl Direct Bilirubin (0-0.2) mg/dl AST (15-37) U/L ALT (12-78) Alkaline Phosphatase (45-117) U/L Troponin I (0-0.045) ng/ml Total Protein (6.4-8.2) gm/dl Albumin (3.4-5.0) gm/dl Globulin (2.5-4.0) gm/dl Albumin/Globulin Ratio (0.9-2) Lipase (73-393) U/L SARS-CoV-2, RNA, NAAT (NEGATIVE) Diagnostic Findings Telemetry reviewed - NSR, no arrhythmias EKG reviewed from admission: NSR with voltage criteria for LVH No prior EKG available for review per inpatient/outpatient records Chest xray: IMPRESSION: No acute cardiopulmonary disease US of the Gallbladder: IMPRESSION: 1. Nonvisualization of pancreas. 2. Liver is upper limits of normal in size with evidence for small hemangioma. No definite evidence for hepatocellular disease. 3. Cholelithiasis with minimal pericholecystic edema. However, there is a negative sonographic East's sign with no definite ultrasound evidence for acute cholecystitis. MRCP: IMPRESSION: 1. Negative MRCP with no evidence for common bile duct dilatation or choledocholithiasis. 2. There is again distention of the gallbladder with cholelithiasis. Mild pericholecystic edema is again seen. If there is clinical concern for acute cholecystitis. Radionuclide hepatobiliary scan would be recommended for further evaluation. 3. Additional nonacute findings are delineated above. Medications Administered Current Inpatient Medications Acetaminophen (Acetaminophen 325 Mg Tab) 650 mg PO Q4H PRN PRN Reason: pain/fever Stop: 07/18/21 01:25 Atorvastatin Calcium (Atorvastatin 20 Mg Tab) 20 mg PO DAILY [facility] Stop: 07/18/21 08:59 Citalopram Hydrobromide (Citalopram 20 Mg Tab) 20 mg PO DAILY [facility] Stop: 07/18/21 08:59 Finasteride (Finasteride 5 Mg Tab) 5 mg PO DAILY [facility] Stop: 07/18/21 08:59 Hydromorphone HCl (Hydromorphone Inj 0.5 Mg/0.5 Ml Syr) 0.5 mg IV Q3H PRN PRN Reason: Pain Stop: 07/02/21 01:25 Sodium Chloride (Nss 1000ml) 1,000 mls @ 125 mls/hr IV .Q8H [facility] Stop: 07/18/21 01:25 Last Admin: 06/18/21 01:38 Dose: 125 mls/hr Documented by: Piperacillin Sod/Tazobactam (Sod 3.375 gm/ Dextrose) 115 mls @ 28.75 mls/hr IV Q8H [facility]; Protocol Stop: 06/28/21 07:59 Last Admin: 06/18/21 06:48 Dose: 28.8 mls/hr Documented by: Famotidine 20 mg/ Syringe 5 mls @ 2.5 mls/min IV BID [facility] Stop: 07/18/21 01:25 Last Admin: 06/18/21 02:05 Dose: 2.5 mls/min Documented by: Lisinopril (Lisinopril 20 Mg Tab) 20 mg PO DAILY [facility] Stop: 07/18/21 08:59 Miscellaneous Information (Piperacill/Tazobac Consult Active) 1 ea N/A UD PRN PRN Reason: Consult Stop: 07/18/21 01:25 Ondansetron HCl (Ondansetron Inj 2 Mg/Ml 2 Ml Vial) 4 mg IV Q6H PRN PRN Reason: Nausea Stop: 07/18/21 01:25 Pantoprazole Sodium (Pantoprazole 40 Mg Tab) 40 mg PO DAILY [facility] Stop: 07/18/21 08:59 (1) Cholelithiasis Cholecystitis presence: without cholecystitis Cholelithiasis location: gallbladder
[2021-06-18] MEDS ORDERED: lisinopril 20 MG TAB PO SCH (09:00)
[2021-06-18] MEDS: PANTOprazole 40 MG TAB PO SCH (09:01)
[2021-06-18] MEDS: CITALOPRAM 20 MG TAB PO SCH (09:01)
[2021-06-18] MEDS: ATORVASTATIN 20 MG TAB PO SCH (09:01)
[2021-06-18] MEDS: FINASTERIDE 5 MG TAB PO SCH (09:53)
[2021-06-18] MEDS ORDERED: lisinopril 20 MG TAB PO ONE (10:03)
--- NOTE | 2021-06-18 11:17 | Gastrointestinal Consultation ---
Date of Consultation June 18, 2021 Assessment & Plan (1) Cholelithiasis: Surgical Consult Reviewed with Dr. Sahu and Dr. Enamorado. Recommended that we defer ERCP and await IOC with cholecystectomy. No GI procedures planned. Would keep NPO pending surgery eval. Supervising Physician Co-Signing Physician Notes Attg add: I interviewed and examined pt, reviewed chart and labs. Pt with abrupt onset of chest and abdominal pain, associated with nausea, lasting several hours. No h/o similar symptoms. He has LFTs increased from baseline, and uls + MRCP show gallstones without mj dil and no choloecho on MRCP. On exam, he appears comfortable without abdominal tenderness. A/P Probable choledocholithiasis - His pain is currently resolved, and LFT"s trending down -- it is possible that he has passed a stone, although it is also possible that he is ball-valving a stone, given his persistently normal lipase. D/w Dr. Enamorado -- given his lack of pain, downtrending LFTs, and normal MRCP, will defer EUS. Please consult surgery for maurisio, and would ask surgery service to consider IOC at time of maurisio. Of note, if pt has pain or LFT bump when he resumes PO, please notify us, as will reconsider EUS +/- ERCP. History of Present Illness Reason for Consultation: Cholecystitis? elevated lfts Requesting Physician: Dr. Bella Attending Physician: Amy Chapman, History of Present Illness Mr. Pang is a 75-year-old male patient of Dr. Sousa with a history of DM-2, HTN, GERD, BPH, essential tremor, depression, who was here visiting his yestererday at which time around 1 PM, he experienced the sudden onset of epigastric and lower chest pain, with nausea but no vomiting he did not have fever chills diarrhea or dark urine. He was sent to the emergency department where he was evaluated. On arrival, LFTs were elevated: T bili 1.5 -> 1.1 (today), D bili 0.8 -> 0.4 (today), AST 380 ->116 (today), ALT 211 -> 174. Lipase yesterday was 118->109. US with gallstones but no biliary ductal dilation. MRCP this morning showed normal bile ducts. He is seen and examined while he is resting in bed. He is awake alert and oriented. On exam, he is non tender. He is afebrile, mildly hypertensive (153/81) and He reports that his pain has resolved several hours ago. He is actually requesting to go home as he needs to take care of his who has dementia and was recently discharged from the hospital. Allergies Allergy/AdvReac Type Severity Reaction Status Date / Time No Known Allergies Allergy Unverified 06/17/21 20:26 Home Medications Medication Instructions Recorded Confirmed Type atorvastatin 20 mg tablet 20 mg PO DAILY 06/17/21 06/17/21 History citalopram 20 mg tablet 20 mg PO DAILY 06/17/21 06/17/21 History finasteride 5 mg tablet 5 mg PO DAILY 06/17/21 06/17/21 History lisinopril 20 mg tablet 20 mg PO DAILY 06/17/21 06/17/21 History omeprazole 20 mg tablet,delayed 20 mg PO DAILY 06/17/21 06/17/21 History release Patient History Medical History GERD (gastroesophageal reflux disease) Hyperlipidemia Hypertension Family History Other Family history non-contributory Social History Smoking Status: Former smoker Second Hand Exposure: No; Do You Dip or Chew Tobacco: No; Hx Alcohol Use: Yes Alcohol type: beer Hx Substance Use: No Preferred Language: [place]ik Communication Ability: Effective Sharepoint Architect Required: No Beliefs That Will Affect Care: None Current Living Situation: Spouse Other Information That Helps Us Care for You: No Feels Safe at Home: Yes Safety Concerns: Feels Safe At This Time Assistive Devices: None Review of Systems Review of Systems: ROS: Gen: Denies weakness, fevers, weight loss Eyes: No eye redness, or pain, no recent vision changes Resp: No SOB, no cough Cardio: No palpitations/irregular beats, no chest pain GI: As per HPI otherwise negative : Denies pain on urination Skin: No jaundice, itching or new rashes Physical Exam Constitutional: well developed, + thin and cooperative Eyes: PERRL, conjunctivae normal, anicteric sclerae Respiratory: normal respiratory effort, lungs clear to auscultation Cardiovascular: RRR, no murmur, no edema Gastrointestinal (Abdomen): normal bowel sounds, soft, nontender, no hepatosplenomegaly Skin: no rashes, warm and dry normal turgor Neurologic: PERRL, EOMI, accommodation nl, no face palsy, no dysarthria awake; not confused Psychiatric: A+Ox3, euthymic affect Orientation: alert, oriented x 3 and cooperative Results & Data ([place]) Vital Signs (Past 12 Hours) Vital Signs Temp Pulse Resp BP Pulse Ox 06/18/21 09:00 69 14 153/81 H 96 06/18/21 03:59 36.8 C 67 18 186/94 H 96 06/18/21 01:20 36.7 C 66 20 186/94 H 96 06/18/21 00:00 36.7 C 74 19 194/80 H 94 Laboratory Results WBC 3.35, Hb 10.8, HCT 31.7, PLT S 72, NA 141, K3.7, CL 110, CO2 28, BUN 18, CR 0.83, INR 1.0, See HPI for LFTs and lipase. Diagnostic Findings MRCP 06/18/21: 1. Negative MRCP with no evidence for common bile duct dilatation or choledocholithiasis. 2. There is again distention of the gallbladder with cholelithiasis. Mild pericholecystic edema is again seen. If there is clinical concern for acute cholecystitis. Radionuclide hepatobiliary scan would be recommended for further evaluation. 3. Additional nonacute findings are delineated above. US 06/18/21: 1. Nonvisualization of pancreas. 2. Liver is upper limits of normal in size with evidence for small hemangioma. No definite evidence for hepatocellular disease. 3. Cholelithiasis with minimal pericholecystic edema. However, there is a negative sonographic East's sign with no definite ultrasound evidence for acute cholecystitis. (1) Cholelithiasis Cholecystitis presence: without cholecystitis Cholelithiasis location: gallbladder
--- NOTE | 2021-06-18 16:52 | Hospitalist Progress Note ---
Date of Service June 18, 2021 Assessment & Plan (1) Atypical chest pain: Plan: Possibly related to biliary colic versus pain from elevated blood pressure. His discomfort has now resolved. Awaiting surgical evaluation for possible cholecystectomy. If cholecystectomy is performed GI team would prefer intraoperative cholangiogram to evaluate common bile duct. For now we will let the patient eat pending further surgical recommendations. Patient does not appe ar to have any cardiac etiology of his chest pain, lisinopril was increased to better control blood pressure. (2) Cholelithiasis: Plan: No solid evidence of cholecystitis however gallbladder is distended and will continue Zosyn empirically for now. (3) Transaminitis: Plan: Transaminitis is resolving indicating possible passage of a gallstone. Trend LFTs in a.m. (4) Hypertension: Plan: Elevated, lisinopril increase from 20 mg daily to 40 mg daily. Continue to monitor closely. (5) DVT prophylaxis: Plan: Lovenox Full Code Dispo-pending surgical recommendations. Patient's pain has resolved and he is feeling better. LFTs are trending down. Possible dc tomorrow. Amy Chapman DO [facility] Hospitalist Admission and Anticipated Discharge Date Admission Date: June 17, 2021 Subjective 75-year-old man admitted for atypical chest pain in the setting of hypertension. He was seen by cardiology with no cardiac component to his chest pain. Lisinopril was increased to 40 mg daily for better control. He was seen by GI and has presumed choledocholithiasis. General surgery consultation was recommended. They haven't seen him and he is starving so will order him a diet now. He reports feeling this same epigastric pain associated with food. He currently reports a complete resolution of any discomfort. He states that it would be ideal to do any surgery as outpatient so that he can go home and take care of his who has dementia this weekend. afebrile Review of Systems Review of Systems: All systems were reviewed and negative except as indicated above. Physical Exam Physical Exam: CONSTITUTIONAL: WNWD, vitals as above, generally well- appearing EYES: normal conjunctivae, no scleral icterus ENT: external ear and nose normal, MMM NECK: trachea midline RESPIRATORY: clear to auscultation bilaterally, no crackles, rales or wheezes, normal respiratory effort CARDIOVASCULAR: regular rate and rhythm, S1 and 2 heard without murmurs, gallops or rubs, no JVD, no peripheral edema GASTROINTESTINAL: soft, nontender, ND, no guarding. MUSCULOSKELETAL: strength 5/5 throughout, head is normocephalic and atraumatic, neck supple, normal palpation of chest wall without tenderness SKIN: warm and dry, no rashes NEUROLOGIC: CN 2-12 grossly intact, no sensory deficit, normal cognition, normal speech, no tremor PSYCHIATRIC: alert cooperative and oriented to person, place and time. Euth ymic mood, makes good eye contact, language grossly intact, recent and remote memory grossly intact. Results & Data Results & Data ([facility]) Vital Signs (Past 12 Hours) Vital Signs Pulse Resp BP Pulse Ox 06/18/21 09:00 69 14 153/81 H 96 Laboratory Results Short CBC 06/18/21 Range/Units 05:16 WBC 3.35 L (4.8-10.8) K/uL Hgb 10.8 L (14.0-18.0) g/dL Hct 31.7 L (42-52) % Plt Count 72 L (130-400) K/uL BMP 06/18/21 05:16 Sodium 141 Potassium 3.7 Chloride 110 H Carbon Dioxide 28 BUN 18 Creatinine 0.85 Glucose 141 H Calcium 8.6 Cardiac Enzymes 06/18/21 Range/Units 05:16 Troponin I < 0.015 (0-0.045) ng/ml Liver Function 06/17/21 06/18/21 Range/Units 16:00 05:16 Total Bilirubin 1.1 H (0.2-1) mg/dl Direct Bilirubin 0.8 H 0.4 H (0-0.2) mg/dl AST 116 H (15-37) U/L ALT 174 H (12-78) Alkaline Phosphatase 316 H D (45-117) U/L Albumin 3.3 L (3.4-5.0) gm/dl Diagnostic Findings Cholangiopancreatography MRI 06/18/21 00:03 MR MRCP CLINICAL HISTORY: elevated lft. Cholelithiasis. Evaluate for cbd stone . Additional chest pain TECHNIQUE: Multiplanar multisequence images of the abdomen were performed without contrast. MRCP images were then generated from source images. COMPARISON: Gallbladder ultrasound from 06/17/2021 FINDINGS: Liver: There is homogeneous signal intensity seen within the liver. No mass l esions are seen. There is no evidence for intrahepatic or duct dilatation. Suspected small hemangioma on ultrasound is not seen on this study. CT of the liver with hemangioma protocol would be the study of choice for further evaluation. Gallbladder: As seen on ultrasound, the gallbladder is distended with cholelithiasis. There is again no evidence for wall thickening. However, there is pericholecystic edema again seen. Spleen: There is homogeneous signal throughout the splenic parenchyma. No mass lesions are seen. There is splenomegaly with the spleen measuring 14.9 cm in greatest length. Pancreas: The pancreas is homogeneous in signal There is no evidence for a mass lesion. Kidneys: There is homogeneous signal throughout the renal parenchyma bilaterally. The right kidney is rotated in its axis. Adrenal glands: There is homogeneous signal demonstrated with no gross mass seen. Abdominal cavity: There is no gross bowel dilatation. There is no evidence for ascites or adenopathy. The aorta is normal in caliber. The visualized osseous structures, demonstrate no evidence of abnormal signal intensity. MRCP: The common bile duct is normal in course and caliber. There is no evidence for dilatation. There is no intraluminal filling defects or evidence for choledocholithiasis. There is no intrahepatic or duct dilatation. IMPRESSION: 1. Negative MRCP with no evidence for common bile duct dilatation or choledocholithiasis. 2. There is again distention of the gallbladder with cholelithiasis. Mild pericholecystic edema is again seen. If there is clinical concern for acute cholecystitis. Radionuclide hepatobiliary scan would be recommended for further evaluation. 3. Additional nonacute findings are delineated above. ACT 112: Negative or not required by law. Electronically signed by: Modesto Pizarro M.D. 06/18/2021 8:28 AM Medications Administered Current Inpatient Medications Acetaminophen (Acetaminophen 325 Mg Tab) 650 mg PO Q4H PRN PRN Reason: pain/fever Stop: 07/18/21 01:25 Atorvastatin Calcium (Atorvastatin 20 Mg Tab) 20 mg PO DAILY [facility] Stop: 07/18/21 08:59 Last Admin: 06/18/21 09:01 Dose: 20 mg Documented by: Citalopram Hydrobromide (Citalopram 20 Mg Tab) 20 mg PO DAILY [facility] Stop: 07/18/21 08:59 Last Admin: 06/18/21 09:01 Dose: 20 mg Documented by: Finasteride (Finasteride 5 Mg Tab) 5 mg PO DAILY [facility] Stop: 07/18/21 08:59 Last Admin: 06/18/21 09:53 Dose: 5 mg Documented by: Hydromorphone HCl (Hydromorphone Inj 0.5 Mg/0.5 Ml Syr) 0.5 mg IV Q3H PRN PRN Reason: Pain Stop: 07/02/21 01:25 Sodium Chloride (Nss 1000ml) 1,000 mls @ 125 mls/hr IV .Q8H [facility] Stop: 07/18/21 01:25 Last Admin: 06/18/21 09:53 Dose: 125 mls/hr Documented by: Piperacillin Sod/Tazobactam (Sod 3.375 gm/ Dextrose) 115 mls @ 28.75 mls/hr IV Q8H [facility]; Protocol Stop: 06/28/21 07:59 Last Admin: 06/18/21 15:40 Dose: 28.8 mls/hr Documented by: Famotidine 20 mg/ Syringe 5 mls @ 2.5 mls/min IV BID [facility] Stop: 07/18/21 01:25 Last Admin: 06/18/21 09:01 Dose: 2.5 mls/min Documented by: Lisinopril (Lisinopril 40 Mg Tab) 40 mg PO DAILY [facility] Stop: 07/19/21 08:59 Miscellaneous Information (Piperacill/Tazobac Consult Active) 1 ea N/A UD PRN PRN Reason: Consult Stop: 07/18/21 01:25 Ondansetron HCl (Ondansetron Inj 2 Mg/Ml 2 Ml Vial) 4 mg IV Q6H PRN PRN Reason: Nausea Stop: 07/18/21 01:25 Pantoprazole Sodium (Pantoprazole 40 Mg Tab) 40 mg PO DAILY [facility] Stop: 07/18/21 08:59 Last Admin: 06/18/21 09:01 Dose: 40 mg Documented by: (1) Cholelithiasis Cholecystitis presence: without cholecystitis Cholelithiasis location: gallbladder
--- NOTE | 2021-06-18 18:25 | Electrocardiogram Report ---
Test Reason : Blood Pressure : / mmHG Vent. Rate : 062 BPM Atrial Rate : 062 BPM P-R Int : 184 ms QRS Dur : 094 ms QT Int : 460 ms P-R-T Axes : 066 011 028 degrees QTc Int : 466 ms Normal sinus rhythm Nonspecific T wave abnormality Prolonged QT Abnormal ECG When compared with ECG of 17-JUN-2021 15:58, No significant change was found Confirmed by Evaristo Mireles ([id number]) on 06/18/2021 6:25:20 PM Referred By: REFERRED SELF Confirmed By:Tristan Mireles
[2021-06-18] MEDS ORDERED: hydrALAZINE HCL 20 MG/ML VIAL IV STA (21:49)
[2021-06-18] MEDS ORDERED: ENOXAPARIN INJ 40 MG/0.4 ML SYR SQ SCH (22:15)
[2021-06-19] MEDS: PIPERACILLIN/TAZOBACTAM 3.375 GM in DEXTROSE 5% 100 ML IV SCH ×3 (00:15→15:54)
[2021-06-19] MEDS ORDERED: cloNIDine HCL 0.1 MG TAB PO ONE (03:32)
[2021-06-19] MEDS: SODIUM CHLORIDE 0.9% 1000ML 1,000 ML IV SCH ×2 (07:02→10:04)
[2021-06-19] MEDS: CITALOPRAM 20 MG TAB PO SCH (07:59)
[2021-06-19] MEDS: ATORVASTATIN 20 MG TAB PO SCH (07:59)
[2021-06-19] MEDS: FINASTERIDE 5 MG TAB PO SCH (07:59)
[2021-06-19] MEDS: PANTOprazole 40 MG TAB PO SCH (08:00)
[2021-06-19 08:02] LABS: Hematocrit (blood only) 32.9 % (42-52); Hemoglobin 11.2 g/dL (14.0-18.0); Mean Corpuscular Hemoglobin 30.9 pg (25-34); Mean Corpuscular Volume 90.9 fL (80-100); RDW Coefficient of Variation 13.7 % (11.5-14.5); RDW Standard Deviation 45.5 fL (36.4-46.3); Red Blood Count 3.62 M/uL (4.7-6.1)
[2021-06-19] MEDS: FAMOTIDINE 20 MG in SYRINGE 3 ML IV SCH (08:02)
[2021-06-19 08:23] LABS: Mean Platelet Volume 11.2 fL (7.4-10.4); Platelet Count 69 K/uL (130-400)
--- NOTE | 2021-06-19 08:33 | Hospitalist Progress Note ---
Date of Service June 19, 2021 Assessment & Plan (1) Atypical chest pain: Plan: Possibly related to biliary colic versus pain from elevated blood pressure. His discomfort has now resolved. Seen by gen.surgery service - plan for outpt follow up and possible chol ecystectomy. Patient does not appear to have any cardiac etiology of his chest pain, lisinopril was increased to better control blood pressure. (2) Cholelithiasis: Plan: No solid evidence of cholecystitis however gallbladder is distended and Zosyn was continued empirically. (3) Transaminitis: Plan: Transaminitis is resolving indicating possible passage of a gallstone. No further work-up planned per GI (4) Hypertension: Plan: Elevated, lisinopril increased from 20 mg daily to 40 mg daily. Started small dose amlodipine. Pt to follow up with PCP on Tuesday. Pt's son obtained blood pressure cuff so can monitor BP at home as well. (5) DVT prophylaxis: Plan: Lovenox Full Code Dispo- plan to DC home today. Plan for close follow up with pcp and gen. surgery Admission and Anticipated Discharge Date Admission Date: June 17, 2021 Subjective 75 yo M admitted for atypical chest pain in the setting of hypertension. He was seen by cardiology with no cardiac component to his chest pain. Lisinopril was increased to 40 mg daily for better BP control. He was seen by GI for presumed choledocholithiasis/ elevated LFTs. LFTs trending down, no further work-up at this time. General surgery recommends outpt follow up within 2 weeks for cholecystectomy. Pt reports resolution of symptoms. No chest pain, no abd. pain. Tolerating food. No fever, chills, nausea, vomiting. He is eager to be discharged - wants to be home for his who has dementia. Pt's son at the bedside - discussed close follow up with pcp and gen. surgery. Review of Systems Review of Systems: All systems reviewed & are unremarkable except as noted in Subjective Physical Exam Physical Exam: CONSTITUTIONAL: WNWD, elderly M in NAD EYES: EOMI, PERRL, normal conjunctivae, no scleral icterus ENT: external ear and nose normal, MMM NECK: supple RESPIRATORY: clear to auscultation bilaterally, no crackles, rales or wheezes, normal respiratory effort CARDIOVASCULAR: regular rate and rhythm, S1 and 2 heard without murmurs, gallops or rubs, no JVD, no peripheral edema GASTROINTESTINAL: soft, nontender, ND, no guarding. MUSCULOSKELETAL: strength 5/5 throughout, head is normocephalic and atraumatic, neck supple SKIN: warm and dry, no rashes NEUROLOGIC: alert and oriented, answering questions appropriately, no facial asymmetry, speech fluent, moves extremities PSYCHIATRIC: Euthymic mood Results & Data Results & Data ([facility]) Vital Signs (Past 12 Hours) Vital Signs Temp Pulse Pulse Resp BP BP Pulse Ox 06/19/21 06:05 152/77 H 06/19/21 03:05 66 06/19/21 02:56 36.3 C L 77 20 194/77 H 97 06/19/21 00:11 36.7 C 64 16 184/78 H 96 06/18/21 22:48 171/91 H 06/18/21 21:46 36.8 C 68 20 181/96 H 96 Laboratory Results 06/19/21 06/19/21 Range/Units 07:30 07:30 WBC 2.70 L (4.8-10.8) K/uL RBC 3.62 L (4.7-6.1) M/uL Hgb 11.2 L (14.0-18.0) g/dL Hct 32.9 L (42-52) % MCV 90.9 (80-100) fL MCH 30.9 (25-34) pg MCHC 34.0 (32-36) g/dL RDW Std Deviation 45.5 (36.4-46.3) fL RDW Coeff of [place] 13.7 (11.5-14.5) % Plt Count 69 L (130-400) K/uL MPV 11.2 H (7.4-10.4) fL Sodium 142 (136-145) mmol/L Potassium 3.6 (3.5-5.1) mmol/L Chloride 110 H (98-107) mmol/L Carbon Dioxide 27 (21-32) mmol/L Anion Gap 5.0 (3-11) BUN 16 (7-18) mg/dl Creatinine 0.90 (0.6-1.4) mg/dl Est Cr Clr Drug Dosing 67.4 ml/min Est GFR ( Amer) 95.1 ml/min Est GFR (Non-Af Amer) 82.1 ml/min BUN/Creatinine Ratio 17.2 (10-20) Glucose 141 H (70-99) mg/dl Calcium 8.6 (8.5-10.1) mg/dl Phosphorus 3.4 (2.5-4.9) mg/dl Magnesium 2.0 (1.8-2.4) mg/dl Total Bilirubin 0.8 (0.2-1) mg/dl Direct Bilirubin 0.2 (0-0.2) mg/dl AST 41 H (15-37) U/L ALT 108 H (12-78) Alkaline Phosphatase 248 H D (45-117) U/L Total Protein 6.0 L (6.4-8.2) gm/dl Albumin 3.3 L (3.4-5.0) gm/dl Medications Administered Current Inpatient Medications Acetaminophen (Acetaminophen 325 Mg Tab) 650 mg PO Q4H PRN PRN Reason: pain/fever Stop: 07/18/21 01:25 Atorvastatin Calcium (Atorvastatin 20 Mg Tab) 20 mg PO DAILY [facility] Stop: 07/18/21 08:59 Last Admin: 06/19/21 07:59 Dose: 20 mg Documented by: Citalopram Hydrobromide (Citalopram 20 Mg Tab) 20 mg PO DAILY [facility] Stop: 07/18/21 08:59 Last Admin: 06/19/21 07:59 Dose: 20 mg Documented by: Enoxaparin Sodium (Enoxaparin Inj 40 Mg/0.4 Ml Syr) 40 mg SQ HS [facility] Stop: 07/18/21 22:14 Last Admin: 06/18/21 22:50 Dose: 40 mg Documented by: Finasteride (Finasteride 5 Mg Tab) 5 mg PO DAILY [facility] Stop: 07/18/21 08:59 Last Admin: 06/19/21 07:59 Dose: 5 mg Documented by: Hydromorphone HCl (Hydromorphone Inj 0.5 Mg/0.5 Ml Syr) 0.5 mg IV Q3H PRN PRN Reason: Pain Stop: 07/02/21 01:25 Sodium Chloride (Nss 1000ml) 1,000 mls @ 125 mls/hr IV .Q8H [facility] Stop: 07/18/21 01:25 Last Infusion: 06/19/21 07:03 Dose: Infused Documented by: Piperacillin Sod/Tazobactam (Sod 3.375 gm/ Dextrose) 115 mls @ 28.75 mls/hr IV Q8H [facility]; Protocol Stop: 06/28/21 07:59 Last Admin: 06/19/21 08:02 Dose: 28.8 mls/hr Documented by: Famotidine 20 mg/ Syringe 5 mls @ 2.5 mls/min IV BID [facility] Stop: 07/18/21 01:25 Last Admin: 06/19/21 08:02 Dose: 2.5 mls/min Documented by: Lisinopril (Lisinopril 40 Mg Tab) 40 mg PO DAILY [facility] Stop: 07/19/21 08:59 Last Admin: 06/19/21 07:59 Dose: 40 mg Documented by: Miscellaneous Information (Piperacill/Tazobac Consult Active) 1 ea N/A UD PRN PRN Reason: Consult Stop: 07/18/21 01:25 Ondansetron HCl (Ondansetron Inj 2 Mg/Ml 2 Ml Vial) 4 mg IV Q6H PRN PRN Reason: Nausea Stop: 07/18/21 01:25 Pantoprazole Sodium (Pantoprazole 40 Mg Tab) 40 mg PO DAILY [facility] Stop: 07/18/21 08:59 Last Admin: 06/19/21 08:00 Dose: 40 mg Documented by: (1) Cholelithiasis Cholecystitis presence: without cholecystitis Cholelithiasis location: gallbladder
[2021-06-19 08:48] LABS: Albumin Level 3.3 gm/dl (3.4-5.0); BUN Creatinine Ratio 17.2 (10-20); Bilirubin Direct 0.2 mg/dl (0-0.2); Calcium 8.6 mg/dl (8.5-10.1); Creatinine Clr Calc Pharmacy 67.4 ml/min; Est GFR (African American) 95.1 ml/min; Est GFR (Non-African American) 82.1 ml/min; Phosphorus 3.4 mg/dl (2.5-4.9); Potassium 3.6 mmol/L (3.5-5.1)
[2021-06-19] MEDS ORDERED: lisinopril 40 MG TAB PO SCH (09:00)
[2021-06-19 09:05] LABS: Bilirubin,Total 0.8 mg/dl (0.2-1)
--- NOTE | 2021-06-19 09:54 | Communication Note ---
Date of Service: June 19, 2021 LFTs continue to trend downward. No plan for EUS/ERCP. Follow daily LFTs
[2021-06-19] MEDS ORDERED: POTASSIUM CHLORIDE CRTAB 20 MEQ TABCR PO STA (11:44)
--- NOTE | 2021-06-19 11:56 | Surgery Consultation ---
Date of Consultation June 19, 2021 Assessment & Plan (1) Transaminitis: This is a 75yM with PMH of HTN, HLD, DM who presented to the [facility] ED on 06/17/21 with complaints of chest and epigastric pain. Workup in the ER with a RUQ US showed + cholelithiasis with minimal pericholecystic edema, with no definite ultrasound evidence for acute cholecystitis. MRCP which showed no evidence for common bile duct dilatation or choledocholithiasis, along with distention of the gallbladder with cholelithiasis. LFT's on admission were elevated but have been downtrending- Tb: 0.8 (1.1), AST: 41(116), ALT: 108 (174), AlkP: 248 (316). GI not performing ERCP based on MRCP and downtrending LFTs. He does not have an elevated WBC (2.7). He is hypertensive, but otherwise HR is stable and he is afebrile. On examination patient's abdomen is soft without tenderness in the RUQ or epigastric region. At this time there is no convincing evidence of cholecystitis it would be reasonable patient can be discharged to home. Given patient's cholelithiasis and initial elevation LFTs on admission it is possible he may have passed a stone. We would recommend patient be evaluated as an outpatient within 2 weeks for follow up and discussion of cholecystectomy. Patient was given return precautions should he develop fevers, nausea/vomiting, worsening and constant abdominal pain to come into the ER and he demonstrated understanding. (2) Cholelithiasis: History of Present Illness Attending Physician: Igor Muñoz MD History of Present Illness This is a 75yM with PMH of HTN, HLD, DM who presented to the [facility] ED on 06/17/21 with complaints of chest and epigastric pain. Patient reports his symptoms developed on 06/17 around 11am. 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 He reports waxing/waning pain into the chest/epigastric region associated with nausea. Workup in the ER with a RUQ US showed + cholelithiasis with minimal pericholecystic edema, with no definite ultrasound evidence for acute cholecystitis. LFTS were elevated prompting a GI consult and MRCP which showed no evidence for common bile duct dilatation or choledocholithiasis, along with distention of the gallbladder with cholelithiasis. Patient states he has a history of reflux, but this is the first time he has ever felt pain like this. He denies fevers/chills, vomiting, or change in bowel habits. He has no past abdominal surgical history. He states he did eat roast beef and potatoes last night for dinner without return of symptoms. He feels vastly improved today. 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 Allergies Allergy/AdvReac Type Severity Reaction Status Date / Time No Known Allergies Allergy Unverified 06/17/21 20:26 Home Medications Medication Instructions Recorded Confirmed Type atorvastatin 20 mg tablet 20 mg PO DAILY 06/17/21 06/17/21 History citalopram 20 mg tablet 20 mg PO DAILY 06/17/21 06/17/21 History finasteride 5 mg tablet 5 mg PO DAILY 06/17/21 06/17/21 History lisinopril 20 mg tablet 20 mg PO DAILY 06/17/21 06/17/21 History omeprazole 20 mg tablet,delayed 20 mg PO DAILY 06/17/21 06/17/21 History release Patient History Medical History GERD (gastroesophageal reflux disease) Hyperlipidemia Hypertension Family History Other Family history non-contributory Social History Smoking Status: Former smoker Second Hand Exposure: No; Hx Alcohol Use: Yes Alcohol type: beer Hx Substance Use: No Preferred Language: Chinese Communication Ability: Effective Signaling Design Engineer Required: No Beliefs That Will Affect Care: None Current Living Situation: Spouse Feels Safe at Home: Yes Assistive Devices: None Review of Systems Constitutional: no fever and no chills Respiratory: no dyspnea Cardiovascular: + chest pain Gastrointestinal: + abdominal pain, + heartburn and + nausea; no vomiting and no change in bowel habits Musculoskeletal: no back pain Physical Exam Physical Exam: awake/alert Constitutional: well developed and well nourished; no acute distress Respiratory: normal respiratory effort Gastrointestinal (Abdomen): Percussion/Palpation: abdomen soft; abdomen nontender Results & Data ([facility]) Vital Signs (Past 12 Hours) Vital Signs Temp Pulse Pulse Pulse Resp BP BP 06/19/21 11:00 36.6 C 62 18 183/87 H 06/19/21 07:00 36.3 C L 72 18 161/82 H 06/19/21 06:05 152/77 H 06/19/21 03:05 66 06/19/21 02:56 36.3 C L 77 20 194/77 H 06/19/21 00:11 36.7 C 64 16 184/78 H Pulse Ox 06/19/21 11:00 97 06/19/21 07:00 95 06/19/21 06:05 06/19/21 03:05 06/19/21 02:56 97 06/19/21 00:11 96 Diagnostic Findings US gallbladder LIMITED ABDOMEN CLINICAL HISTORY: cp, elev lfts. COMPARISON: None. TECHNIQUE: Multiple grayscale and color images of the right upper quadrant of the abdomen. FINDINGS: The study is limited by overlying bowel gas. Pancreas: Pancreas is not visualized due to the overlying bowel gas. Liver: The liver is homogeneous in echogenicity there is evidence for a 1.2 x 1.2 x 1.0 cm hyperechoic area within the right lobe of the liver most characteristic of a small hemangioma. No other evidence for liver mass is seen. There is no intrahepatic biliary duct dilatation. The liver is of the upper limits of normal measuring 17 cm the axillary margin. Gallbladder: The gallbladder is mildly distended with numerous intraluminal calculi present. Posterior acoustic shadowing is seen. There is no evidence for wall thickening. There is minimal pericholecystic edema. However, there is a negative sonographic East sign. Common Bile Duct: (CBD): It is normal in size measuring 6 mm Inferior Vena Cava (IVC): The imaged IVC is patent. Right kidney: There is no evidence for hydronephrosis, calculus or gross renal mass. The kidney is normal in size. IMPRESSION: 1. Nonvisualization of pancreas. 2. Liver is upper limits of normal in size with evidence for small hemangioma. No definite evidence for hepatocellular disease. 3. Cholelithiasis with minimal pericholecystic edema. However, there is a negative sonographic East's sign with no definite ultrasound evidence for acute cholecystitis. ACT 112: Negative or not required by law. Electronically signed by: Modesto Pizarro M.D. 06/17/2021 9:03 PM MR MRCP CLINICAL HISTORY: elevated lft. Cholelithiasis. Evaluate for cbd stone . Additional chest pain TECHNIQUE: Multiplanar multisequence images of the abdomen were performed without contrast. MRCP images were then generated from source images. COMPARISON: Gallbladder ultrasound from 06/17/2021 FINDINGS: Liver: There is homogeneous signal intensity seen within the liver. No mass lesions are seen. There is no evidence for intrahepatic or duct dilatation. Suspected small hemangioma on ultrasound is not seen on this study. CT of the liver with hemangioma protocol would be the study of choice for further evaluation. Gallbladder: As seen on ultrasound, the gallbladder is distended with cholelithiasis. There is again no evidence for wall thickening. However, there is pericholecystic edema again seen. Spleen: There is homogeneous signal throughout the splenic parenchyma. No mass lesions are seen. There is splenomegaly with the spleen measuring 14.9 cm in greatest length. Pancreas: The pancreas is homogeneous in signal There is no evidence for a mass lesion. Kidneys: There is homogeneous signal throughout the renal parenchyma bilaterally. The right kidney is rotated in its axis. Adrenal glands: There is homogeneous signal demonstrated with no gross mass seen. Abdominal cavity: There is no gross bowel dilatation. There is no evidence for ascites or adenopathy. The aorta is normal in caliber. The visualized osseous structures, demonstrate no evidence of abnormal signal intensity. MRCP: The common bile duct is normal in course and caliber. There is no evidence for dilatation. There is no intraluminal filling defects or evidence for choledocholithiasis. There is no intrahepatic or duct dilatation. IMPRESSION: 1. Negative MRCP with no evidence for common bile duct dilatation or choledocholithiasis. 2. There is again distention of the gallbladder with cholelithiasis. Mild pericholecystic edema is again seen. If there is clinical concern for acute cholecystitis. Radionuclide hepatobiliary scan would be recommended for further evaluation. 3. Additional nonacute findings are delineated above. ACT 112: Negative or not required by law. Electronically signed by: Modesto Pizarro M.D. 06/18/2021 8:28 AM PG Care Time/CCT Total # of Minutes Spent Total Time Spent with Patient: Total time spent is greater than 50% in coordination of care (as documented) at patient's floor/unit and/or counseling patient: Coding Level of Care Code 27531 Initial Inpt Care Lvl 1 Diagnoses Transaminitis R74.01 Cholelithiasis K80.20 Cholecystitis presence: without cholecystitis Cholelithiasis location: gallbladder (1) Cholelithiasis Cholecystitis presence: without cholecystitis Cholelithiasis location: gallbladder
[2021-06-19] MEDS ORDERED: hydrALAZINE HCL 20 MG/ML VIAL IV ONE (13:03)
[2021-06-19] MEDS ORDERED: hydrALAZINE HCL 20 MG/ML VIAL IV PRN (13:04)
[2021-06-19] MEDS ORDERED: amLODIPine BESYLATE 5 MG TAB PO ONE (13:15)
--- NOTE | 2021-06-20 01:18 | Discharge Summary ---
Date of Service June 20, 2021 Admission HPI Per Admitting Provider A 75-year-old male with past medical history significant for type 2 diabetes, hypertension, GERD, BPH, essential tremor, depression, who presents with pain of the chest and also in the epigastric region. The pain started in the afternoon and was constant, associated with nausea. Since in the ER, his symptoms are resolved. The patient is currently resting comfortably and hemodynamically stable. He does not have any pain. Denies any headache, no dizziness, no blurred visions, no earache, no runny nose, no sore throat. No cough. Currently, no nausea. Currently, no chest pain, no shortness of breath, no abdominal pain. Normal bowel and bladder movements. He has some pain in the right thigh region because of the fall about a week ago. Admission Exam Per Admitting Provider GENERAL: The patient is of moderate build, not in acute distress. VITAL SIGNS: Temperature 37, pulse 63, respiratory rate 16, blood pressure 153/75, oxygen 96% on room air. HEENT: Pupils equal, round and reactive to light. Oral mucosa moist. NECK: No JVD. No neck masses. CARDIOVASCULAR: S1 and S2 heard. Regular rate and rhythm. No murmur, no wolfe p. RESPIRATORY SYSTEM: Normal AP diameter. No accessory muscle use. No wheezing, no crackles. ABDOMEN: Soft, bowel sounds present, nontender, no distention. CENTRAL NERVOUS SYSTEM: Cranial nerves II-XII grossly intact, nonfocal. EXTREMITIES: No edema, no erythema. Principal Diagnosis Cholelithiasis Elevated LFTs Abdominal pain Atypical chest pain Hypertension Discharge Exam CONSTITUTIONAL: WNWD, elderly M in NAD EYES: EOMI, PERRL, normal conjunctivae, no scleral icterus ENT: external ear and nose normal, MMM NECK: supple RESPIRATORY: clear to auscultation bilaterally, no crackles, rales or wheezes, normal respiratory effort CARDIOVASCULAR: regular rate and rhythm, S1 and 2 heard without murmurs, gallops or rubs, no JVD, no peripheral edema GASTROINTESTINAL: soft, nontender, ND, no guarding. MUSCULOSKELETAL: strength 5/5 throughout, head is normocephalic and atraumatic, neck supple SKIN: warm and dry, no rashes NEUROLOGIC: alert and oriented, answering questions appropriately, no facial asymmetry, speech fluent, moves extremities PSYCHIATRIC: Euthymic mood Discharge Data Allergies Allergy/AdvReac Type Severity Reaction Status Date / Time No Known Allergies Allergy Unverified 06/17/21 20:26 Consultations 06/17/21 21:27 ED Decision to Admit Stat 06/18/21 08:00 Consult Cardiology Routine Consult Gastroenterology Routine 06/18/21 10:15 Consult General Surgery Routine Ordered Studies 06/17/21 19:12 US gallbladder Stat IMPRESSION: 1. Nonvisualization of pancreas. 2. Liver is upper limits of normal in size with evidence for small hemangioma. No definite evidence for hepatocellular disease. 3. Cholelithiasis with minimal pericholecystic edema. However, there is a negative sonographic East's sign with no definite ultrasound evidence for acute cholecystitis. 06/18/21 00:03 MR MRCP Urgent IMPRESSION: 1. Negative MRCP with no evidence for common bile duct dilatation or choledocholithiasis. 2. There is again distention of the gallbladder with cholelithiasis. Mild pericholecystic edema is again seen. If there is clinical concern for acute cholecystitis. Radionuclide hepatobiliary scan would be recommended for further evaluation. 3. Additional nonacute findings are delineated above. Hospital Course (1) Atypical chest pain: Possibly related to biliary colic versus pain from elevated blood pressure. His discomfort has now resolved. Seen by gen.surgery service - plan for outpt follow up and possible cholecystectomy. Patient does not appear to have any cardiac etiology of his chest pain, lisinopril was increased to better control blood pressure. (2) Cholelithiasis: No solid evidence of cholecystitis however gallbladder is distended and Zosyn was continued empirically. (3) Transaminitis: Transaminitis is resolving indicating possible passage of a gallstone. No further work-up planned per GI (4) Hypertension: Elevated, lisinopril increased from 20 mg daily to 40 mg daily. Started small dose amlodipine. Pt to follow up with PCP on Tuesday. Pt's son obtained blood pressure cuff so can monitor BP at home as well. (5) DVT prophylaxis: Lovenox Dispo- plan to DC home today. Plan for close follow up with pcp and gen. surgery Total Time Total Time Spent Total Time Spent (In Minutes): 40 Discharge Plan Discharge Items Patient Disposition: Home - Self-Care Reason For Visit: ABDOMINAL PAIN Discharge Diagnosis: Abdominal pain Cholelithiasis Elevated LFTs Atypical chest pain Hypertension Activity: Per Instructions section Non-emergency contact: Primary Care Provider and Surgeon Call non-emergency contact if: you have any medication questions and your symptoms worsen Follow-up/Referrals: Abhinav Young DO [Physician] - (Please call to schedule follow up in clinic within 2 weeks) Latonia Sousa MD [Primary Care Provider] - Diet: Low Fat Addtl Attending Provider Instructions: Follow up with your primary care doctor within 1 week. If you can, monitor your blood pressure at home, and write down your numbers. It is important that you discuss further with your primary care physician if/how your blood pressure medications should be adjusted. Your lisinopril was increased to 40 mg daily, you were also started on a new medication, called amlodipine. Take them as prescribed. Please follow-up with general surgery, to schedule your surgery for gallbladder. Finish antibiotic treatment, with Augmentin, as prescribed. Pending Studies at Discharge: No Stand-Alone Forms: My [facility] [employer], Smoking Cessation Medications and DC Order Prescriptions: New lisinopril [Zestril] 40 mg Tablet 40 mg PO DAILY Qty: 30 RF: 0 amoxicillin-pot clavulanate [Augmentin] 875-125 mg tablet 1 tab PO BID Qty: 3 RF: 0 amlodipine 5 mg tablet 5 mg PO DAILY Qty: 20 RF: 0 Continued atorvastatin 20 mg tablet 20 mg PO DAILY RF: 0 citalopram 20 mg tablet 20 mg PO DAILY RF: 0 finasteride 5 mg tablet 5 mg PO DAILY RF: 0 omeprazole 20 mg Tablet,Delayed Release (Dr/Ec) 20 mg PO DAILY RF: 0 Changed lisinopril 20 mg tablet 40 mg PO DAILY Qty: 0 RF: 0 Discharge Orders: Discharge Order (Routine); Ordered 06/19/21 Ordered By: Igor Muñoz Admission Data Admit Date/Time: 06/17/21 23:58 Attending Provider: Igor Muñoz Admit Provider: Jamie Bella Primary Care Provider: Latonia Sousa Other Providers: Jamie Bella ; Asim Sahu ; Basim Wu Stephen E. ; Amy Chapman Other Interventions: Discharge Summary Assessment (RN) Last Done: 06/19/21 17:13
== END 2021-06-19 17:23 | disposition home or self-care (01) | DRG 446 ==
LOC: ED 15:25 → EDINP 23:58 → SUATTDRO 23:58 → 2S 06-19 00:52

== ENCOUNTER 2023-10-03 15:16 | Inpatient (IN) ==
--- NOTE | 2023-10-03 15:38 | Emergency Department Note ---
Impression & Plan Midgut volvulus, Abdominal pain, Leukopenia, Anemia, Thrombocytopenia ED Provider Note NAME: VANDA WILLIS AGE: 78 SEX: M : 1945 ARRIVES VIA: Ambulance INFORMANT: Patient ED PROVIDER(S): Des Dewitt DO CHIEF COMPLAINT: abdominal pain HPI: Patient is a 78-year-old male with a past medical history of cholelithiasis and cholecystectomy that presents to the ER for abdominal pain located in the infraumbilical region which radiated up into the subxiphoid region/chest. Associated with nausea and vomiting. He notes it is worse with laying down. This started around 12:00. After he vomited he did feel better but he still has the pain. He feels as though his bowels are moving around and he can see it within his abdomen. Son provides additional history that since the cholecystectomy he has been having some intermittent infraumbilical abdominal pain but never this bad. Denies any dysuria, urgency or frequency. No other exacerbating or remitting factors. ADDITIONAL HISTORY OBTAINED: Per HPI Chronic Medical/Social Conditions Affecting Care: Per HPI PAST MEDICAL HISTORY:See Below PAST SURGICAL HISTORY:See Below FAMILY HISTORY:See Below SOCIAL HISTORY:See Below HOME MEDICATIONS:See Below ALLERGIES:See Below VITALS:See Below PHYSICAL EXAMINATION: GENERAL: Sitting up in bed, alert, well appearing, well nourished, no distress, non-toxic EYE EXAM: normal conjunctiva. OROPHARYNX:mucous membranes are moist NECK: supple, no nuchal rigidity, no adenopathy, non-tender LUNGS: Clear to auscultation. Normal chest wall mechanics HEART: no murmurs, S1 normal and S2 normal ABDOMEN: abdomen soft, non-tender, normo-active bowel sounds, no masses, no rebound or guarding. UPPER EXTREMITIES: upper extremities are grossly normal. LOWER EXTREMITIES: No pitting edema. NEURO EXAM: Normal sensorium, cranial nerves II-XII grossly intact, normal speech, no gross weakness of arms, no gross weakness of legs. MEDICAL DECISION MAKING: Patient is an 78-year-old male who presents ER for severe abdominal pain. IV was established blood work was obtained. He was brought in by EMS and was given 100 mcg of fentanyl. Labs show a leukopenia 3.7 thousand. Mild anemia 9.6 with thrombocytopenia at 60 is fairly consistent with previous. BMP with slightly elevated glucose. Lactate was normal. Mag was slightly low. LFTs bilirubin was unremarkable. Lipase was normal. UA was clean. He was given IV fluids and pain medications while in the ER. 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 I reviewed the case with him and he recommended admission to the hospitalist. Patient was evaluated by general surgery. Patient was given IV antibiotics. Please see their note for further details. Consults/Care Managements Discussions: Per [facility] Triage Nursing notes reviewed. Limited review of prior medical records performed Vital Signs: reviewed and remarkable for no significant abnormalities Differential diagnosis: Differential diagnoses includes but is not limited to gastritis, peptic ulcer disease, GERD, gallbladder disease, pancreatitis, small bowel obstruction, appendicitis, diverticulitis, hernia, urinary tract infection, torsion, perforation, trauma, infectious. ER treatment provided: See below Diagnostics interpreted by me include EKG and cardiac monitoring as listed below: -Cardiac Monitoring: An order was placed for continuous cardiac monitoring. The monitor shows a rate of 70 with sinus rhythm. -ECG: Sinus rhythm rate 74 Normal axis No PVCs QTc 492 -Laboratory studies:Interpreted by me as stated above in MDM and shown below. Imaging studies: Xrays: As interpreted by me:none CTs show: CT abdomen pelvis per radiology shows questionable midgut volvulus Procedures:none Critical Care: None Past Med/Surg History Medical History (Updated 10/03/23 @ 21:11 by Des Dewitt DO) Hypomagnesemia BPH (benign prostatic hyperplasia) Hypocalcemia Chronic Chronic anemia Diabetes mellitus, type 2 NO MEDS AT THIS TIME *WAS ON METFORMIN IN THE PAST Depression GERD (gastroesophageal reflux disease) Hyperlipidemia Hypertension Surgical History Nausea and vomiting after administration of anesthetic agent H/O prostate biopsy History of esophagogastroduodenoscopy (EGD) H/O umbilical hernia repair History of tooth extraction History of tonsillectomy and adenoidectomy History of nasal cauterization Family History Mother Family history of diabetes mellitus Father Family history of diabetes mellitus Other Family history non-contributory No family history of adverse response to anesthesia Social History (Reviewed 10/03/23 @ 20:46 by NHUNG Werner Smoking Status: Former smoker Second Hand Exposure: No; Do You Dip or Chew Tobacco: No; Hx Alcohol Use: Yes Alcohol type: wine Hx Substance Use: No Preferred Language: Vietnamese Communication Ability: Effective Scout Executive Required: No Beliefs That Will Affect Care: None Current Living Situation: Spouse Current Living Situation Comment: LIVES AT HOME "SHE HAS MEMORY PROBLEMS" Other Information That Helps Us Care for You: No Feels Safe at Home: Yes Safety Concerns: Feels Safe At This Time Assistive Devices: None Allergies Allergies Allergy/AdvReac Type Severity Reaction Status Date / Time No Known Allergies Allergy Verified 07/27/21 06:35 Home Meds Home Medications Medication Instructions Recorded Confirmed atorvastatin 20 mg tablet 20 mg PO DAILY 06/17/21 10/03/23 vitamins A,C,Q-sthe-cnxnut 4,296 1 cap PO PM 07/21/21 10/03/23 mcg-226 mg-90 mg capsule (PreserVision AREDS) calcium carbonate 1,000 mg PO DAILY 10/03/23 10/03/23 calcium carbonate 500 mg PO PM 10/03/23 10/03/23 cholecalciferol (vitamin D3) 25 25 mcg PO DAILY 10/03/23 10/03/23 mcg (1,000 unit) capsule (Vitamin D3) citalopram 40 mg tablet 40 mg PO DAILY 10/03/23 10/03/23 finasteride 5 mg tablet 5 mg PO DAILY 10/03/23 10/03/23 omeprazole 20 mg capsule,delayed 20 mg PO DAILY 10/03/23 10/03/23 release tamsulosin 0.4 mg capsule 0.4 mg PO DAILY 10/03/23 10/03/23 Results & Data (ED) Vital Signs Vital Signs - 24 hr 10/03/23 15:27 10/03/23 15:31 10/03/23 16:00 Temperature 36.4 C L Temperature Source Oral Pulse Rate 73 72 Pulse Rate [Apical] 66 Pulse Rate from SpO2 Sensor Respiratory Rate 14 16 Blood Pressure 123/63 Blood Pressure [Right Arm] 150/71 H Blood Pressure Mean 83 Blood Pressure Mean [Right Arm] 97 Pulse Oximetry 98 98 Oxygen Delivery Method Room Air Room Air Sepsis Recent Fever Within 48 Hours No Sepsis New/Unexplained Change in Mental Status No Sepsis Action Taken by Nursing No Action Required 10/03/23 16:02 10/03/23 17:00 10/03/23 17:30 Temperature Temperature Source Pulse Rate 71 78 Pulse Rate [Apical] Pulse Rate from SpO2 Sensor 72 77 Respiratory Rate 18 20 Blood Pressure 171/82 H 169/84 H Blood Pressure [Right Arm] Blood Pressure Mean 111 112 Blood Pressure Mean [Right Arm] Pulse Oximetry 97 99 98 Oxygen Delivery Method Room Air Room Air Room Air Sepsis Recent Fever Within 48 Hours Sepsis New/Unexplained Change in Mental Status Sepsis Action Taken by Nursing Laboratory Data 10/03/23 15:30 10/03/23 15:30 Lab Results 10/03/23 10/03/23 Range/Units 15:30 15:37 WBC 3.70 L (4.8-10.8) K/ul RBC 3.00 L (4.70-6.10) M/uL Hgb 9.6 L (14.0-18.0) g/dl Hct 27.7 L (42.0-52.0) % MCV 92.3 (80.0-100.0) fL MCH 32.0 (25.0-34.0) pg MCHC 34.7 (32.0-36.0) g/dL RDW Std Deviation 45.1 (36.4-46.3) fL RDW Coeff of [place] 13.6 (11.5-14.5) % Plt Count 64 L (130-400) K/uL MPV 11.2 (9.4-12.4) fL Immature Gran % (Auto) 0.8 % Neut % (Auto) 80.3 % Lymph % (Auto) 12.7 % Woodson % (Auto) 5.7 % Eos % (Auto) 0.0 % Baso % (Auto) 0.5 % Neut # (Auto) 2.97 (1.40-6.50) K/uL Lymph # (Auto) 0.47 L (1.20-3.40) K/uL Woodson # (Auto) 0.21 (0.11-0.59) K/uL Eos # (Auto) 0.00 (0.00-0.50) K/uL Baso # (Auto) 0.02 (0.00-0.20) K/uL Immature Gran # (Auto) 0.03 (0.01-0.20) K/uL Platelet Estimate Decreased L (Normal) Poikilocytosis Present Sodium 138 (136-145) mmol/L Potassium 3.8 (3.5-5.1) mmol/L Chloride 106 (98-107) mmol/L Carbon Dioxide 27 (21-32) mmol/L Anion Gap 5 (3-11) BUN 30 H (6-23) mg/dl Creatinine 0.94 (0.6-1.4) mg/dl Est Cr Clr Drug Dosing 58.5 ml/min Est GFR ( Amer) 88.4 ml/min Est GFR (Non-Af Amer) 76.3 ml/min BUN/Creatinine Ratio 31.9 H (10-20) Glucose 175 H (70-99(Fasting)) mg/dl Calcium 7.8 L (8.6-10.3) mg/dl Phosphorus 3.5 (2.5-4.9) mg/dl Magnesium 1.2 L (1.7-2.4) mg/dl Total Bilirubin 1.0 (0.2-1.0) mg/dl AST 13 (13-39) U/L ALT 9 (7-52) U/L Alkaline Phosphatase 94 (34-104) U/L Total Protein 5.4 L (6.0-8.3) gm/dl Albumin 3.5 (3.4-5.0) gm/dl Globulin 1.9 L (2.5-4.0) gm/dl Albumin/Globulin Ratio 1.8 (0.9-2) Lipase 12 (11-82) U/L Urine Color Dark Yellow Urine Appearance Clear (Clear) Urine pH 5.5 (4.5-7.5) Ur Specific Anderson 1.024 (1.000-1.030) Urine Protein 1+ H (Negative) Urine Glucose (UA) Negative (Negative) Urine Ketones Trace H (Negative) Urine Blood Negative (Negative) Urine Nitrite Negative (Negative) Urine Bilirubin Negative (Negative) Urine Urobilinogen Negative (Negative) Ur Leukocyte Esterase Negative (Negative) Urine WBC (Auto) 0-5 (0-5) /hpf Urine RBC (Auto) 0-2 (0-2) /hpf U Hyaline Cast (Auto) 0-2 (0-2) /lpf U Epithel Cells (Auto) 0-2 (0-2) /hpf Urine Bacteria (Auto) None Seen (None Seen) Administered Medications Calcium Carbonate (Calcium Carbonate 1250mg Tab) 1,250 mg PO PM [facility] Stop: 11/02/23 20:59 Last Admin: 10/03/23 20:27 Dose: 1,250 mg Documented By: SATNAM Sodium Chloride (Nss) 1,000 mls @ 80 mls/hr IV .[id number] [facility] Stop: 10/04/23 19:53 Last Admin: 10/03/23 19:58 Dose: 80 mls/hr Documented By: SATNAM Piperacillin Sod/Tazobactam (Sod 4.5 gm/ Dextrose) 100 mls @ 25 mls/hr IV Q8H [facility]; Protocol Stop: 10/05/23 20:59 Last Admin: 10/03/23 21:02 Dose: 25 mls/hr Documented By: SATNAM Magnesium Sulfate/Dextrose (Magnesium Sulfate / D5w) 1 gm in 100 mls @ 50 mls/hr IV Q2H [facility] Stop: 10/03/23 23:44 Last Admin: 10/03/23 19:59 Dose: 50 mls/hr Documented By: SATNAM Insulin Aspart (Insulin Aspart Per Unit Charge) 0 units SC ACHS ETHAN Stop: 11/02/23 20:59 Last Admin: 10/03/23 20:44 Dose: Not Given Documented By: SATNAM Discontinued Medications Sodium Chloride (Nss) 500 mls @ 999 mls/hr IV .Q31M ONE Stop: 10/03/23 16:03 Last Infusion: 10/03/23 16:45 Dose: Infused Documented By: Admin: 10/03/23 15:40 Dose: 999 mls/hr Documented By: ELA Piperacillin Sod/Tazobactam Sod (Zosyn) 4.5 gm in 100 mls @ 200 mls/hr IV NOW ONE Stop: 10/03/23 17:07 Last Infusion: 10/03/23 18:36 Dose: Infused Documented By: Admin: 10/03/23 16:47 Dose: 200 mls/hr Documented By: ELA Ioversol (Optiray 320 500ml) 92 ml IV ONCE ONE Stop: 10/03/23 16:14 Last Admin: 10/03/23 16:14 Dose: 92 ml Documented By: FRANCESCA Imaging Data Radiologist's Impression: Abdomen/Pelvis CT 10/03/23 15:33 CT OF THE ABDOMEN AND PELVIS WITH CONTRAST CLINICAL HISTORY: Abdominal pain, nausea and vomiting. COMPARISON STUDY: Right upper quadrant ultrasound May 18, 2021. MRCP June 18, 2021 TECHNIQUE: Following IV administration of 92 mL of Optiray, axial images of the abdomen and pelvis were obtained from the lung bases to the proximal femurs. Images were reviewed in the axial, sagittal, and coronal planes. IV contrast was administered without complication. Automated exposure control was utilized for the study. A dose lowering technique was utilized adhering to the principles of ALARA. CT DOSE: 621.01 mGy.cm FINDINGS: Lung bases are unremarkable. There is a small hiatal hernia. No pneumatosis, free air or portal venous gas is present. There is no biliary ductal dilatation status post cholecystectomy. Mild splenomegaly is unchanged since MRCP of June 18, 2021. There are multiple enlarged mesenteric lymph nodes. These measure up to 1.8 cm in short axis diameter. Diffuse mesenteric edema is present. No fluid collections are noted. There is a small amount of ascites within the pelvis. No hepatic lesions are present. Adrenal glands, kidneys and pancreas are unremarkable. There is no hydronephrosis. There is swirling of the central mesentery, new since prior MRI. In addition, there is moderate wall thickening of several jejunal loops. The ligament of Treitz appears to be abnormal in position. The duodenum does not definitively cross the midline. Chronic diverticulosis is present without evidence for acute diverticulitis. The prostate is enlarged. There postoperative findings consistent with TURP. IMPRESSION: 1. Swirling of the central mesentery with abnormal position of the ligament of Treitz. Diffuse mesenteric edema with moderate wall thickening of several jejunal loops. Small amount of ascites within the pelvis. 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 Surgical consultation is recommended. Findings discussed with Dr. Dewitt at time of dictation. 2. Multiple mildly enlarged mesenteric lymph nodes. This finding is nonspecific and could be related to engorgement related to venous congestion. A lymphoproliferative process is also within the differential. Stable mild splenomegaly. ACT 112: Negative or not required by law. Electronically signed by: Matthew Loera M.D. 10/03/2023 4:36 PM Discharge Plan Visit Data Chief Complaint: Illness ED Provider: Des Dewitt Discharge Problem: Midgut volvulus, Abdominal pain, Leukopenia, Anemia, Thrombocytopenia Patient Disposition: Admitted As Inpatient Discharge Instructions Interventions: ED Discharge Assessment Last Done: 10/03/23 18:43 Discharge Problem: Abdominal pain Qualifiers: Abdominal location: unspecified location Qualified Code(s): R10.9 - Unspecified abdominal pain Leukopenia Qualifiers: Leukopenia type: unspecified Qualified Code(s): D72.819 - Decreased white blood cell count, unspecified Anemia Qualifiers: Anemia type: unspecified type Qualified Code(s): D64.9 - Anemia, unspecified
[2023-10-03] MEDS: SODIUM CHLORIDE 0.9% 500 ML IV ONE (15:40)
[2023-10-03 15:59] LABS: Appearance Urine Clear (Clear); Bacteria Urine Automated None Seen (None Seen); Bilirubin Urine Negative (Negative); Blood Urine Negative (Negative); Cast Urine Automated 0-2 /lpf (0-2); Color Urine Dark Yellow; Epithelial Cell Urine Auto 0-2 /hpf (0-2); Glucose Urine UA Negative (Negative); Ketones Urine Trace (Negative); Leukocyte Esterase Urine Negative (Negative); Nitrite Urine Negative (Negative); Protein Urine 1+ (Negative); RBC Urine Automated 0-2 /hpf (0-2); Specific Gravity Urine 1.024 (1.000-1.030); Urobilinogen Urine Negative (Negative); WBC Urine Automated 0-5 /hpf (0-5); pH Urine 5.5 (4.5-7.5)
[2023-10-03 16:02] LABS: Albumin Globulin Ratio 1.8 (0.9-2); Albumin Level 3.5 gm/dl (3.4-5.0); BUN Creatinine Ratio 31.9 (10-20); Calcium 7.8 mg/dl (8.6-10.3); Creatinine Clr Calc Pharmacy 58.5 ml/min; Est GFR (African American) 88.4 ml/min; Est GFR (Non-African American) 76.3 ml/min; Globulin 1.9 gm/dl (2.5-4.0); Potassium 3.8 mmol/L (3.5-5.1); Total Protein 5.4 gm/dl (6.0-8.3)
[2023-10-03 16:10] LABS: Basophils # (auto) 0.02 K/uL (0.00-0.20); Basophils % (auto) 0.5 %; Hematocrit (blood only) 27.7 % (42.0-52.0); Hemoglobin 9.6 g/dl (14.0-18.0); Immature Granulocytes # (auto) 0.03 K/uL (0.01-0.20); Immature Granulocytes % (auto) 0.8 %; Lymphocytes # (auto) 0.47 K/uL (1.20-3.40); Lymphocytes % (auto) 12.7 %; Mean Corpuscular Hgb Conc 34.7 g/dL (32.0-36.0); Mean Corpuscular Volume 92.3 fL (80.0-100.0); Mean Platelet Volume 11.2 fL (9.4-12.4); Monocytes # (auto) 0.21 K/uL (0.11-0.59); Monocytes % (auto) 5.7 %; Neutrophils # (auto) 2.97 K/uL (1.40-6.50); Neutrophils % (auto) 80.3 %; Platelet Count 64 K/uL (130-400); Platelet Estimate Decreased (Normal); Poikilocytosis Present; RDW Coefficient of Variation 13.6 % (11.5-14.5); RDW Standard Deviation 45.1 fL (36.4-46.3)
[2023-10-03] MEDS: OPTIRAY 320 500ml IV ONE (16:14)
--- NOTE | 2023-10-03 16:37 | CT Scan Report ---
CT OF THE ABDOMEN AND PELVIS WITH CONTRAST CLINICAL HISTORY: Abdominal pain, nausea and vomiting. COMPARISON STUDY: Right upper quadrant ultrasound May 18, 2021. MRCP June 18, 2021 TECHNIQUE: Following IV administration of 92 mL of Optiray, axial images of the abdomen and pelvis we re obtained from the lung bases to the proximal femurs. Images were reviewed in the axial, sagittal, and coronal planes. IV contrast was administered without complication. Automated exposure control wa s utilized for the study. A dose lowering technique was utilized adhering to the principles of ALARA . CT DOSE: 621.01 mGy.cm FINDINGS: Lung bases are unremarkable. There is a small hiatal hernia. No pneumatosis, free air or po rtal venous gas is present. There is no biliary ductal dilatation status post cholecystectomy. Mild s plenomegaly is unchanged since MRCP of June 18, 2021. There are multiple enlarged mesenteric lymp h nodes. These measure up to 1.8 cm in short axis diameter. Diffuse mesenteric edema is present. No f luid collections are noted. There is a small amount of ascites within the pelvis. No hepatic lesions are present. Adrenal glands, kidneys and pancreas are unremarkable. There is no hydronephrosis. There is swirling of the central mesentery, new since prior MRI. In addition, there is moderate wall thick ening of several jejunal loops. The ligament of Treitz appears to be abnormal in position. The duoden um does not definitively cross the midline. Chronic diverticulosis is present without evidence for ac hamilton diverticulitis. The prostate is enlarged. There postoperative findings consistent with TURP. IMPRESSION: 1. Swirling of the central mesentery with abnormal position of the ligament of Treitz. Diffuse mesent ravi edema with moderate wall thickening of several jejunal loops. Small amount of ascites within the pelvis. 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 Surgical consultation is recommende d. Findings discussed with Dr. Dewitt at time of dictation. 2. Multiple mildly enlarged mesenteric lymph nodes. This finding is nonspecific and could be related to engorgement related to venous congestion. A lymphoproliferative process is also within the differe ntial. Stable mild splenomegaly. ACT 112: Negative or not required by law. Electronically signed by: Matthew Loera M.D. 10/03/2023 4:36 PM
[2023-10-03] MEDS: PIPERACILLIN/TAZOBACTAM 4.5 GM/100 ML BAG IV ONE (16:47)
--- NOTE | 2023-10-03 17:03 | History & Physical Report ---
Date of Service October 03, 2023 Assessment & Plan (1) Abdominal pain: Plan: Patient is 78-year-old male with PMH HTN, HLD, DM II, chronic anemia, GERD, BPH, depression, central tremor, chronic hypocalcemia presented to ER with complaint of worsening abdominal pain today with N/V/D In ER afebrile, vitals stable. WBC: 3.7. Lactate WNL, lipase WNL, UA unremarkable CT abdomen pelvis:Swirling of the central mesentery with abnormal position of the ligament of Treitz. Diffuse mesenteric edema with moderate wall thickening of several jejunal loops. Small amount of ascites within the pelvis. 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 Multiple mildly enlarged mesenteric lymph nodes. This finding is nonspecific and could be related to engorgement related to venous congestion. A lymphoproliferative process is also within the differential. Stable mild splenomegaly. In ER given 500 mL NSS, Zosyn Will continue Zosyn for now NPO IVF General surgery consult. Spoke to Dr Young who recommends conservative measures currently. If patient would have worsening pain or tachycardia to alert general surgery and surgical intervention may be needed CBC, BMP in am (2) Diabetes mellitus, type 2: Plan: Diet controlled A1c: 6.5 on 01/11/2023 NovoLog sliding scale correction only for now as is n.p.o. (3) Hypertension: Plan: BP is elevated in ER Previously was on lisinopril however patient does not believe he has been taking and has not been it filled at pharmacy for quite some time. Outpatient med listed lisinopril 10 mg daily Monitor BP, may need to resume antihypertensive agent (4) Hypomagnesemia: Plan: Acute on chronic hypomagnesemia Chronic hypomagnesemia thought secondary to PPI use. Previously on oral magnesium supplement however was discontinued several months ago secondary to GI side effects Magnesium: 1.2 Replace and monitor (5) Hypocalcemia: Plan: Chronic hypocalcemia On chronic calcium supplement and vitamin D supplement Ca: 7.8. Was 8.8 on 05/24/2023 Follows with endocrinology Continue calcium Follow BMP (6) Chronic anemia: Plan: Chronic thrombocytopenia Hgb: 9.6. Was 11 on 01/11/2023. PLT: 64, was 66 on 01/11/2023 Monitor CBC (7) Hyperlipidemia: Plan: Will hold atorvastatin now while n.p.o. (8) BPH (benign prostatic hyperplasia): Plan: Continue finasteride, tamsulosin (9) GERD (gastroesophageal reflux disease): Plan: Convert oral PPI to IV for now (10) Depression: Plan: Continue citalopram DVT Prophylaxis SCDs DNR/DNI as per discussion with pt Follows with Dr Latonia Sousa for routine care Pt was seen and care coordinated with Dr Muñoz. See addendum I spent a total of 78 minutes reviewing notes, outpatient records, labs, medication, coordinating, documenting and providing care for this patient excluding time spent in the performance of separately billed services. History of Present Illness Chief Complaint: Abdominal pain Primary Care Provider: Latonia Sousa MD Patient is 78-year-old male with PMH HTN, HLD, DM II, chronic anemia, GERD, BPH, depression, central tremor, chronic hypocalcemia presented to ER with complaint of abdominal pain. History obtained from patient, patient's son, inpatient and outpatient chart review. Reports has been having intermittent pain abdomen for years, however abdominal pain seems more persistent last couple of weeks. Patient states will have pain one day and then improves for 2 days and then returns. Tried gas-x with limited relief. States States ate pizza fpr lunch and since with worsening abdominal pain, nausea, vomiting and diarrhea. Also with sweats today and pain more severe with vomiting and diarrhea so came to ER for evaluation. Points to pain periumbilical that radiates up to epigastric and describes pain as "Throbbing and sharp". Denies any known fever. Denies CP, SOB. Reports history vertigo and had PT recently with improvement. States no vertigo or PT for past couple of weeks. History cholecystectomy. Denies hematemesis, hematochezia, ALVA, dizziness, syncope, palpitations, cough, sore throat, rhinorrhea, weakness, extremity edema, rashes, urinary symptoms. Allergies Allergy/AdvReac Type Severity Reaction Status Date / Time No Known Allergies Allergy Verified 07/27/21 06:35 Home Medications Medication Instructions Recorded Confirmed Type atorvastatin 20 mg tablet 20 mg PO DAILY 06/17/21 10/03/23 History vitamins A,C,V-dpyl-mgnrkm 4,296 1 cap PO PM 07/21/21 10/03/23 History mcg-226 mg-90 mg capsule (PreserVision AREDS) calcium carbonate 1,000 mg PO DAILY 10/03/23 10/03/23 History calcium carbonate 500 mg PO PM 10/03/23 10/03/23 History cholecalciferol (vitamin D3) 25 25 mcg PO DAILY 10/03/23 10/03/23 History mcg (1,000 unit) capsule (Vitamin D3) citalopram 40 mg tablet 40 mg PO DAILY 10/03/23 10/03/23 History finasteride 5 mg tablet 5 mg PO DAILY 10/03/23 10/03/23 History omeprazole 20 mg capsule,delayed 20 mg PO DAILY 10/03/23 10/03/23 History release tamsulosin 0.4 mg capsule 0.4 mg PO DAILY 10/03/23 10/03/23 History Past Med/Surg History Medical History (Updated 10/03/23 @ 21:11 by Des Dewitt DO) Hypomagnesemia BPH (benign prostatic hyperplasia) Hypocalcemia Chronic Chronic anemia Diabetes mellitus, type 2 NO MEDS AT THIS TIME *WAS ON METFORMIN IN THE PAST Depression GERD (gastroesophageal reflux disease) Hyperlipidemia Hypertension Surgical History Nausea and vomiting after administration of anesthetic agent H/O prostate biopsy History of esophagogastroduodenoscopy (EGD) H/O umbilical hernia repair History of tooth extraction History of tonsillectomy and adenoidectomy History of nasal cauterization Family History Mother Family history of diabetes mellitus Father Family history of diabetes mellitus Other Family history non-contributory No family history of adverse response to anesthesia Social History Smoking Status: Former smoker Second Hand Exposure: No; Do You Dip or Chew Tobacco: No; Hx Alcohol Use: Yes Alcohol type: beer and wine Hx Substance Use: No Preferred Language: Citizen Of [place] Communication Ability: Effective 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: No Beliefs That Will Affect Care: None Current Living Situation: Spouse Current Living Situation Comment: LIVES AT HOME "SHE HAS MEMORY PROBLEMS" Other Information That Helps Us Care for You: No Feels Safe at Home: Yes Safety Concerns: Feels Safe At This Time Assistive Devices: None and Other Assistive Devices Comment: partial upper plate Review of Systems Review of Systems: All systems reviewed & are unremarkable except as noted in HPI & below Physical Exam Physical Exam: General: no acute distress, WDWN Head: normocephalic, atraumatic Eyes: conjunctiva non-injected, anicteric ENT: hard of hearing, normal inspection external ears, nose, mucous membranes moist Neck: supple, trachea midline, non-tender Lungs: clear, no respiratory distress, no wheezing/rhonchi/rales CV: RRR, no pretibial edema Abd: hyperactive BS, soft, +tenderness to palpation periumbilical without guardingn Ext: no cyanosis, no calf tenderness Neuro: A&O x 3, no focal deficits noted, normal affect Skin: warm, dry Results & Data Results & Data Vital Signs (Past 12 Hours) Vital Signs Temp Pulse Pulse Resp BP BP Pulse Ox 10/03/23 16:02 97 10/03/23 16:00 66 16 150/71 H 98 10/03/23 15:31 72 10/03/23 15:27 36.4 C L 73 14 123/63 98 O2 Del Method 10/03/23 16:02 Room Air 10/03/23 16:00 Room Air 10/03/23 15:31 10/03/23 15:27 Room Air Laboratory Results Short CBC 10/03/23 Range/Units 15:30 WBC 3.70 L (4.8-10.8) K/ul Hgb 9.6 L (14.0-18.0) g/dl Hct 27.7 L (42.0-52.0) % Plt Count 64 L (130-400) K/uL BMP 10/03/23 15:30 Sodium 138 Potassium 3.8 Chloride 106 Carbon Dioxide 27 BUN 30 H Creatinine 0.94 Glucose 175 H Calcium 7.8 L Liver Function 10/03/23 Range/Units 15:30 Total Bilirubin 1.0 (0.2-1.0) mg/dl AST 13 (13-39) U/L ALT 9 (7-52) U/L Alkaline Phosphatase 94 (34-104) U/L Albumin 3.5 (3.4-5.0) gm/dl Urine 10/03/23 Range/Units 15:37 Urine Color Dark Yellow Urine Appearance Clear (Clear) Urine pH 5.5 (4.5-7.5) Ur Specific [place] 1.024 (1.000-1.030) Urine Protein 1+ H (Negative) Urine Glucose (UA) Negative (Negative) Diagnostic Findings Abdomen/Pelvis CT 10/03/23 15:33 CT OF THE ABDOMEN AND PELVIS WITH CONTRAST CLINICAL HISTORY: Abdominal pain, nausea and vomiting. COMPARISON STUDY: Right upper quadrant ultrasound May 18, 2021. MRCP June 18, 2021 TECHNIQUE: Following IV administration of 92 mL of Optiray, axial images of the abdomen and pelvis were obtained from the lung bases to the proximal femurs. Images were reviewed in the axial, sagittal, and coronal planes. IV contrast was administered without complication. Automated exposure control was utilized for the study. A dose lowering technique was utilized adhering to the principles of ALARA. CT DOSE: 621.01 mGy.cm FINDINGS: Lung bases are unremarkable. There is a small hiatal hernia. No pneumatosis, free air or portal venous gas is present. There is no biliary ductal dilatation status post cholecystectomy. Mild splenomegaly is unchanged since MRCP of June 18, 2021. There are multiple enlarged mesenteric lymph nodes. These measure up to 1.8 cm in short axis diameter. Diffuse mesenteric edema is present. No fluid collections are noted. There is a small amount of ascites within the pelvis. No hepatic lesions are present. Adrenal glands, kidneys and pancreas are unremarkable. There is no hydronephrosis. There is swirling of the central mesentery, new since prior MRI. In addition, there is moderate wall thickening of several jejunal loops. The ligament of Treitz appears to be abnormal in position. The duodenum does not definitively cross the midline. Chronic diverticulosis is present without evidence for acute diverticulitis. The prostate is enlarged. There postoperative findings consistent with TURP. IMPRESSION: 1. Swirling of the central mesentery with abnormal position of the ligament of Treitz. Diffuse mesenteric edema with moderate wall thickening of several jejunal loops. Small amount of ascites within the pelvis. 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 Surgical consultation is recommended. Findings discussed with Dr. Dewitt at time of dictation. 2. Multiple mildly enlarged mesenteric lymph nodes. This finding is nonspecific and could be related to engorgement related to venous congestion. A lymphoproliferative process is also within the differential. Stable mild splenomegaly. ACT 112: Negative or not required by law. Electronically signed by: Matthew Loera M.D. 10/03/2023 4:36 PM ECG Additional Comments: Sinus rhythm, rate 74, nonspecific T wave changes Supervising Physician Co-Signing Physician Notes Pt seen and examined by me, care coordinated myrna/ Chaz Kureger PA-C, pls refer to her note above for further detail. Pt is an 78 yo M with HTN, HLD, DM II, chronic anemia, GERD, BPH, depression, central tremor, chronic hypocalcemia who presents with abdominal pain. Pt reports he has been having intermittent abd. pain for some time - mainly since his cholecystectomy however abdominal pain seems more persistent last couple of weeks. Today he also had episode of vomiting and diarrhea and pain was much worse than usual so he presented to the ED. CT abdomen obtained in the ED and concerning for midgut volvulus. Surgery was consulted - so far plan for close observation, however if clinical status worsens pt may need a surgery. Currently pt is laying in bed in NAD, abd. pain is controlled. He is awake , alert , and able to answer questions appropriately. Pt's family is present at the bedside. Lungs sound clear, heart sound regular, abdomen soft, mildly tender to palpation , + bowel sounds. No LE edema. Pt is moving extremities. Will obtain lactate, add mag , and phos levels to ED labs. Will replace electrolytes as needed. Continue IV zosyn which was started in the ED. Cont. to closely monitor. MD Wanda
[2023-10-03 17:14] LABS: Magnesium 1.2 mg/dl (1.7-2.4); Phosphorus 3.5 mg/dl (2.5-4.9)
[2023-10-03] MEDS ORDERED: ONDANSETRON INJ 2 MG/ML 2 ML VIAL IV PRN (18:54)
[2023-10-03] MEDS ORDERED: ACETAMINOPHEN 1,000 MG/100 ML VIAL IV PRN (18:54)
[2023-10-03] MEDS ORDERED: CARBOHYDRATES FOR HYPOGLYCEMIA PO PRN (18:54)
[2023-10-03] MEDS ORDERED: GLUCAGON FOR INJ 1 MG VIAL SQ PRN (18:54)
[2023-10-03] MEDS ORDERED: GLUCOSE 40% GEL 15 GM TUBE PO PRN (18:54)
[2023-10-03] MEDS ORDERED: DEXTROSE 50% 50 ML SYRINGE IV PRN (18:54)
[2023-10-03] MEDS ORDERED: GLUCOSE 10 TAB/TUBE PO PRN (18:54)
[2023-10-03] MEDS: SODIUM CHLORIDE 0.9% 1,000 ML IV SCH (19:58)
[2023-10-03] MEDS: MAGNESIUM SULFATE / D5W 1 GM/100 ML BAG IV SCH (19:59)
--- NOTE | 2023-10-03 20:08 | Surgery Consultation ---
Date of Consultation October 03, 2023 Assessment & Plan (1) Abdominal pain: The patient is being admitted on the hospitalist service. From surgical perspective we recommend proceeding as follows: Implement n.p.o. status Provide IV fluid for hydration (I had discussed with the nursing staff in the emergency department that since he has an ER bed hold his maintenance fluids need to be initiated immediately) Antiemetics to be provided The patient has been initiated on antibiotics in form of Zosyn and this should continue Serial labs should be followed Will follow serial abdominal exams The cause of patient's abdominal pain may be related to CT scan findings which suggest a possible mesenteric volvulus. I discussed the case with my attending physician Dr. Young and due to the patient's hemodynamic stability and relative normalcy of patient's labs (no leukocytosis, normal lactic acid level, no acute kidney injury) he would like to monitor the patient clinically for the present time and see how he responds. If the patient does show signs of clinical deterioration consideration will be given to performing exploratory laparotomy The patient may have analgesics but this should be used sparingly as would not want to mask any underlying condition I have ordered a chest x-ray for preoperative purposes in the event the patient will require surgery this study will be done The patient was noted to have a low magnesium level and this has been supplemented Is also noted that the patient is noted to have a low platelet count of 64,000. I have discussed this with the blood bank and informed them that the patient may require an operation at some point. They have indicated that the patient will need a type and screen and we can also order for platelets to be put on hold in the event that he would have a surgery necessitating a platelet transfusion. (This order has been placed) Would recommend utilizing only SCDs for DVT prevention, no chemical means until it is ascertained whether or not the patient require surgical intervention Addendum (11:30 PM) Patient was reevaluated at approximately 11:15 PM. Since my initial visit with him in the emergency department he has been moved to the medical bautista room 283. At this time the patient notes that his abdominal pain has markedly improved. He presently does not have much in the way of abdominal pain. He does not have any nausea or vomiting. I discussed with the nurse attending to the patient and he has had no episodes of hypotension or tachycardia. He has remained afebrile. The nurse was received the patient on the bautista notes that she has not had to administer any analgesics since his arrival. (Review of chart shows the patient's most recent administered analgesic was 1000 mg of intravenous Tylenol at approximately 7:00 PM on 10/03/2023). As the patient has not shown any signs of clinical deterioration and actually feels better we will continue with the plan as outlined above. Addendum (3:10am) Discussed with RN attending to pt---he has not required any analgesics since arrival to floor. No concerns noted at this time. Pt. revisited at bedside---he is sleeping but easily arousable. He notes at this time he does not have abdominal pain. No N/V. Vital reviewed and he is without hypotension, tachycardia, or fever. On exam his abdomen remains mildly distended, but palpation does not cause a painful response at this time. No signs of peritonitis. Will continue plan as noted above. Supervising Physician Co-Signing Physician Notes I personally saw and evaluated the patient with Jim Woods PA-C and agree with the assessment and plan. 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 The patient notes that since approximately Easter (09/26/2023) he has been having on and off intermittent abdominal pain. He notes that the pain became markedly worse today prompting his visit to the emergency department. He describes the pain as a generalized abdominal pain mostly located in the central abdomen. He says that the pain does not radiate. He says that the pain comes and goes in a random fashion. He does note that the pain appears somewhat worse when he lies flat but he does not identify any other provocative factors. Earlier today he had associated nausea and vomiting after eating his noon meal when his pain became markedly worse. Patient also reported an episode of diarrhea. He denies any hematemesis. He also denies any melena or bright blood per rectum. As the pain was worse than what he noted it usually was he presented to the emergency department. The patient does note that he has had prior abdominal surgeries as he has had a right inguinal herniorrhaphy and also a cholecystectomy. I question the patient on his day-to-day activities and he notes that when he is feeling well he remains active. He says he ambulates throughout his property daily and is able to negotiate steps and inclines without chest pain or shortness of breath. Since arrival to the hospital the patient has had labs and imaging which I independent reviewed. CT scan of the abdomen pelvis demonstrated the patient had some swirling of the central mesentery with an abnormal appearing position at the ligament of Treitz along with diffuse mesenteric edema and moderate wall thickness and wall thickening of several jejunal loops. The interpreting radiologist could not exclude the possibility of the midgut volvulus. Labs included CBC her white blood cell count is elevated at 3.7. Hemoglobin and hematocrit are 9.6 and 27.7. Platelet count was 64,000. Chemistry profile showed sodium and potassium were within normal range. His BUN had a slight elevation at 30 and his creatinine was normal. Lactic acid level was checked and was noted to be 0.8 which was nonelevated. Patient's magnesium level was low at 1.2. There is no elevation of his LFTs or lipase. Urinalysis was not indicative of infection. The patient also underwent an EKG which showed normal sinus rhythm. There were no changes indicative of acute ischemia. At the time of my interview the patient did admit to some continued abdominal discomfort but he was in no distress. Allergies Allergy/AdvReac Type Severity Reaction Status Date / Time No Known Allergies Allergy Verified 07/27/21 06:35 Home Medications Medication Instructions Recorded Confirmed Type atorvastatin 20 mg tablet 20 mg PO DAILY 06/17/21 10/03/23 History vitamins A,C,R-ejou-rilekn 4,296 1 cap PO PM 07/21/21 10/03/23 History mcg-226 mg-90 mg capsule (PreserVision AREDS) calcium carbonate 1,000 mg PO DAILY 10/03/23 10/03/23 History calcium carbonate 500 mg PO PM 10/03/23 10/03/23 History cholecalciferol (vitamin D3) 25 25 mcg PO DAILY 10/03/23 10/03/23 History mcg (1,000 unit) capsule (Vitamin D3) citalopram 40 mg tablet 40 mg PO DAILY 10/03/23 10/03/23 History finasteride 5 mg tablet 5 mg PO DAILY 10/03/23 10/03/23 History omeprazole 20 mg capsule,delayed 20 mg PO DAILY 10/03/23 10/03/23 History release tamsulosin 0.4 mg capsule 0.4 mg PO DAILY 10/03/23 10/03/23 History Patient History Medical History (Updated 10/03/23 @ 21:11 by Des Dewitt DO) Hypomagnesemia BPH (benign prostatic hyperplasia) Hypocalcemia Chronic Chronic anemia Diabetes mellitus, type 2 NO MEDS AT THIS TIME *WAS ON METFORMIN IN THE PAST Depression GERD (gastroesophageal reflux disease) Hyperlipidemia Hypertension Surgical History Nausea and vomiting after administration of anesthetic agent H/O prostate biopsy History of esophagogastroduodenoscopy (EGD) H/O umbilical hernia repair History of tooth extraction History of tonsillectomy and adenoidectomy History of nasal cauterization Family History Mother Family history of diabetes mellitus Father Family history of diabetes mellitus Other Family history non-contributory No family history of adverse response to anesthesia Social History Smoking Status: Former smoker Second Hand Exposure: No; Do You Dip or Chew Tobacco: No; Hx Alcohol Use: Yes Alcohol type: beer and wine Hx Substance Use: No Preferred Language: Armenian Communication Ability: Effective Merchandising Representative Required: No Beliefs That Will Affect Care: None Current Living Situation: Spouse Current Living Situation Comment: LIVES AT HOME "SHE HAS MEMORY PROBLEMS" Other Information That Helps Us Care for You: No Feels Safe at Home: Yes Safety Concerns: Feels Safe At This Time Assistive Devices: None and Other Assistive Devices Comment: partial upper plate Review of Systems Constitutional: no fever and no chills Ear, Nose, Mouth, Throat: no hearing loss Respiratory: no cough and no dyspnea Cardiovascular: no chest pain Gastrointestinal: as per Subjective / HPI Genitourinary: no dysuria Musculoskeletal: no back pain Integumentary: no rash Neurologic: no localized weakness Physical Exam Constitutional: WD/WN, vitals as above Eyes: no conjunctival abnormality ENMT: Ears: no hearing impairment and no external ear abnormality Mouth: no oropharynx abnormality Neck: trachea midline Respiratory: normal respiratory effort; no respiratory distress and no labored breathing Cardiovascular: Rate/Rhythm: regular rate and regular rhythm Vessels: dorsalis pedis pulses present and radial pulses present Gastrointestinal (Abdomen): At the time of my interview the patient was noted to have mild abdominal distention. There is some tympany to percussion. The abdomen was however, not rigid. There is no rebound tenderness or guarding or signs of peritonitis. The patient did have some generalized pain with palpation throughout his abdomen. I did not appreciate any hernias. Musculoskeletal: No calf tenderness Skin: no rashes Neurologic: moves all extremities Psychiatric: A+Ox3, euthymic affect Results & Data Vital Signs (Past 12 Hours) Vital Signs Temp Pulse Pulse Resp BP BP Pulse Ox 10/03/23 18:00 72 23 155/78 H 97 10/03/23 17:30 78 20 169/84 H 98 10/03/23 17:00 71 18 171/82 H 99 10/03/23 16:02 97 10/03/23 16:00 66 16 150/71 H 98 10/03/23 15:31 72 10/03/23 15:27 36.4 C L 73 14 123/63 98 O2 Del Method 10/03/23 18:00 Room Air 10/03/23 17:30 Room Air 10/03/23 17:00 Room Air 10/03/23 16:02 Room Air 10/03/23 16:00 Room Air 10/03/23 15:31 10/03/23 15:27 Room Air PG Care Time/CCT Total # of Minutes Spent Total Time Spent with Patient: Total time spent is greater than 50% in coordination of care (as documented) at patient's floor/unit and/or counseling patient: Coding Level of Care Code 28776 INT INP/OBS CARE 3/75MIN Diagnoses Abdominal pain R10.9
[2023-10-03] MEDS: CALCIUM CARBONATE 1250MG TAB PO SCH (20:27)
[2023-10-03] MEDS: INSULIN ASPART PER UNIT CHARGE SC SCH (20:44)
[2023-10-03] MEDS: PIPERACILLIN/TAZOBACTAM 4.5 GM in DEXTROSE 5% MINI-B 100 ML IV SCH (21:02)
[2023-10-04 06:54] LABS: Basophils # (auto) 0.02 K/uL (0.00-0.20); Basophils % (auto) 0.5 %; Hemoglobin 8.6 g/dl (14.0-18.0); Immature Granulocytes # (auto) 0.01 K/uL (0.01-0.20); Immature Granulocytes % (auto) 0.3 %; Lymphocytes # (auto) 0.78 K/uL (1.20-3.40); Lymphocytes % (auto) 20.4 %; Mean Corpuscular Hemoglobin 31.3 pg (25.0-34.0); Mean Corpuscular Hgb Conc 34.4 g/dL (32.0-36.0); Mean Corpuscular Volume 90.9 fL (80.0-100.0); Mean Platelet Volume 12.2 fL (9.4-12.4); Monocytes % (auto) 7.8 %; Neutrophils # (auto) 2.72 K/uL (1.40-6.50); Platelet Count 62 K/uL (130-400); RDW Coefficient of Variation 13.5 % (11.5-14.5); RDW Standard Deviation 44.2 fL (36.4-46.3); Red Blood Count 2.75 M/uL (4.70-6.10); White Blood Count 3.83 K/ul (4.8-10.8)
[2023-10-04 07:25] LABS: BUN Creatinine Ratio 21.7 (10-20); Calcium 8.3 mg/dl (8.6-10.3); Creatinine Clr Calc Pharmacy 63.5 ml/min; Est GFR (African American) 96.3 ml/min; Est GFR (Non-African American) 83.1 ml/min; Magnesium 1.7 mg/dl (1.7-2.4); Phosphorus 3.6 mg/dl (2.5-4.9); Potassium 3.6 mmol/L (3.5-5.1)
[2023-10-04 07:31] LABS: Estimated Average Glucose 131 mg/dl; Hemoglobin A1C 6.2 % (4.5-5.6)
--- NOTE | 2023-10-04 07:40 | XRay Report ---
XR chest 1V portable CLINICAL HISTORY: pre-op COMPARISON STUDY: Chest radiograph June 17, 2021. FINDINGS: Lung volumes are normal. Lungs are clear. There is no pneumothorax or pleural effusion. Car diac size is normal. Mediastinal contours are normal. There is no evidence for pulmonary edema. IMPRESSION: No acute cardiopulmonary findings. ACT 112: Negative or not required by law. Electronically signed by: Matthew Loera M.D. 10/04/2023 7:38 AM
[2023-10-04] MEDS: CHOLECALCIFEROL 25 MCG (1000 UNITS) TAB PO SCH (07:47)
[2023-10-04] MEDS: CALCIUM CARBONATE 1250MG TAB PO SCH (07:47)
[2023-10-04] MEDS: FINASTERIDE 5 MG TAB PO SCH (07:48)
[2023-10-04] MEDS: TAMSULOSIN HCL 0.4 MG CAP PO SCH (07:48)
[2023-10-04] MEDS: CITALOPRAM 40 MG TAB PO SCH (07:48)
[2023-10-04] MEDS: PANTOprazole 40 MG in SYRINGE 0 ML IV SCH (09:39)
--- NOTE | 2023-10-04 09:45 | Surgery Progress Note ---
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 vital signs are stable Today pt feels much improved, denies abdominal pain Abdomen soft, non distended, non tender Will allow sips/chips for this AM, if continues to do well can consider clears for lunch. would keep at clears for today He wants to go home to care for his with dementia, but son is there with her today. Would prefer to keep him in house for today/tonight yet to ensure he remains well pt seen/examined with Dr. Young Admission and Anticipated Discharge Date Admission Date: October 03, 2023 Supervising Physician Co-Signing Physician Notes I personally saw and evaluated the patient with Betty Short PA-C and agree with the assessment and plan. [address] findings of possible midgut volvulus He has improved overnight and now has no abdominal pain, N/V He has had some sips of clears Will check on him later this afternoon and possibly give him some clears today No plans for any surgical intervention at this time Subjective Patient reports he is feeling much better. Denies abdominal pain this AM. No nausea/vomiting. + bm yesterday (diarrhea). Physical Exam Physical Exam: awake/alert, sitting up in chair Respiratory: normal respiratory effort Gastrointestinal (Abdomen): Percussion/Palpation: abdomen soft; abdomen nontender Results & Data Vital Signs (Past 12 Hours) Vital Signs Temp Pulse Pulse Pulse Resp BP Pulse Ox 10/04/23 07:36 98.1 F 73 18 164/77 H 96 10/04/23 07:00 69 10/04/23 03:25 98.1 F 69 16 159/72 H 94 10/03/23 23:56 79 10/03/23 22:12 97.3 F L 76 20 176/69 H 96 O2 Del Method 10/04/23 07:36 Room Air 10/04/23 07:00 10/04/23 03:25 Room Air 10/03/23 23:56 10/03/23 22:12 Room Air PG Care Time/CCT Total # of Minutes Spent Total Time Spent with Patient: Total time spent is greater than 50% in coordination of care (as documented) at patient's floor/unit and/or counseling patient: Coding Level of Care Code 58658 SUB INP/OBS CARE 07/14MIN 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
--- NOTE | 2023-10-04 11:03 | Hospitalist Progress Note ---
Date of Service October 04, 2023 Assessment & Plan (1) Abdominal pain: Plan: Patient is 78-year-old male with PMH HTN, HLD, DM II, chronic anemia, GERD, BPH, depression, central tremor, chronic hypocalcemia presented to ER with complaint of worsening abdominal pain for 1 day along with nausea vomiting and diarrhea. In ER afebrile, vitals stable. WBC: 3.7. Lactate WNL, lipase WNL, UA unremarkable CT abdomen pelvis on presentation; swirling of the central mesentery with abnormal position of the ligament of Treitz. Diffuse mesenteric edema with moderate wall thickening of several jejunal loops. Small amount of ascites within the pelvis. 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 Multiple mildly enlarged mesenteric lymph nodes. This finding is nonspecific and could be related to engorgement related to venous congestion. A lymphoproliferat jaswant process is also within the differential. Stable mild splenomegaly. Evaluated by surgery; patient reports improvement in abdominal pain; no nausea or vomiting Diet advanced to clear liquid diet Continue to monitor for any abdominal pain or discomfort, nausea/vomiting. Continue empiric antibiotic for the time being (2) Pancytopenia: Plan: Review of blood work reveals pancytopenia that has been going on for few years. Outpatient lab work confirms the same. WBC of 3.83, hemoglobin of 8.6 and platelet count of 62,000 CT abdomen pelvis also shows multiple enlarged menstrual lymph nodes. Will obtain peripheral blood smear, vitamin B12 and folic acid level, serum iron, ferritin level I discussed finding with patient and patient's son at bedside. They report that the have not been told of any such history in the past by previous physicians. Will obtain routine hematology consultation to establish care and further wor kup. (3) Diabetes mellitus, type 2: Plan: Diet controlled A1c: 6.5 on 01/11/2023 NovoLog sliding scale correction only for now as is n.p.o. (4) Hypertension: Plan: BP is elevated in ER Previously was on lisinopril however patient does not believe he has been taking and has not been it filled at pharmacy for quite some time. Restarted on lisinopril 10 mg once a day (5) Hypomagnesemia: Plan: Acute on chronic hypomagnesemia Chronic hypomagnesemia thought secondary to PPI use. Previously on oral magnesium supplement however was discontinued several months ago secondary to GI side effects Magnesium: 1.2 on admission 1.7 today (6) Hypocalcemia: Plan: Chronic hypocalcemia On chronic calcium supplement and vitamin D supplement Calcium of 8.3 today (7) Hyperlipidemia: Plan: Continue Lipitor (8) BPH (benign prostatic hyperplasia): Plan: Continue finasteride, tamsulosin (9) GERD (gastroesophageal reflux disease): Plan: Continue PPI (10) Depression: Plan: Continue citalopram DVT Prophylaxis SCDs DNR/DNI as per discussion with pt Follows with Dr Latonia Sousa for routine care Discussed with patient's son at bedside. Answered questions/queries Time spent evaluating patient, direct bedside care, chart review, placing orders, interpretation of diagnostic studies, discussion with consultants, patient, and family members, as well as other required patient management activities is 50 minutes Please note the above document was generated using voice recognition software. It may contain grammatical, syntax or spelling errors. Any formal questions or concerns about the content, text or information contained within the body of this dictation should be directly addressed to the provider for clarification Admission and Anticipated Discharge Date Admission Date: October 03, 2023 Subjective Reports that abdominal pain has subsided. No nausea or vomiting. No overnight events Has improved appetite. Review of Systems Review of Systems: All systems reviewed & are unremarkable except as noted in Subjective Physical Exam Physical Exam: Constitutional: WD/WN, vitals as above, NAD, sitting up in bed, pleasant, conversing easily Respiratory: normal respiratory effort, lungs clear to auscultation, no wheeze, rales, rhonchi. Normal insp/exp effort, no accessory muscle use Cardiovascular: RRR, no murmur, no edema Vessels: no JVD or carotid bruit Chest: normal inspection of chest Abdomen: Soft, nontender, bowel sound present Musculoskeletal: no cyanosis or clubbing, extremities motor strength 5/5 Skin: no rashes, warm and dry normal turgor Neurologic: PERRL, EOMI, accommodation nl, no face palsy, no dysarthria CN's II- XI intact bilaterally and moves all extremities Psychiatric: A+Ox3, euthymic affect Results & Data Results & Data Vital Signs (Past 12 Hours) Vital Signs Temp Pulse Pulse Resp BP Pulse Ox O2 Del Method 10/04/23 07:36 36.7 C 73 18 164/77 H 96 Room Air 10/04/23 07:00 69 10/04/23 03:25 36.7 C 69 16 159/72 H 94 Room Air 10/03/23 23:56 79 (1) Abdominal pain Abdominal location: unspecified location Qualified Code(s): R10.9 - Unspecified abdominal pain
--- NOTE | 2023-10-04 13:31 | Electrocardiogram Report ---
Test Reason : Blood Pressure : / mmHG Vent. Rate : 074 BPM Atrial Rate : 074 BPM P-R Int : 148 ms QRS Dur : 090 ms QT Int : 444 ms P-R-T Axes : 043 -06 -05 degrees QTc Int : 492 ms Normal sinus rhythm Minimal voltage criteria for LVH, may be normal variant Nonspecific T wave abnormality Prolonged QT Abnormal ECG When compared with ECG of 18-JUN-2021 12:40, Inverted T waves have replaced nonspecific T wave abnormality in Inferior leads Confirmed by Evaristo Mireles ([id number]) on 10/04/2023 1:31:20 PM Referred By: REFERRED SELF Confirmed By:Tristan Mireles
[2023-10-04] MEDS: lisinopril 10 MG TAB PO SCH (13:38)
--- NOTE | 2023-10-04 16:47 | Oncology Consultation ---
Date of Consultation October 04, 2023 Assessment & Plan (1) Midgut volvulus: Management per surgery (2) Pancytopenia: Pancytopenia could be multifactorial however the patient will need a comprehensive evaluation. Will possibly need a bone marrow biopsy which can be performed on an outpatient basis. The patient has enlarged lymph nodes in the belly he may end up needing a biopsy. Once the patient is discharged we will schedule outpatient follow-up. Plan Thank you for this interesting oncological consult medical oncology will continue to follow the patient and make appropriate recommendations. A total of 60 minutes were spent in counseling, coordination of care review of prior records. History of Present Illness Reason for Consultation: Abdominal lymphadenopathy Attending Physician: Jonh Valverde MD History of Present Illness The patient is a very pleasant 78-year-old man who was brought to the hospital with intestinal obstruction.. The patient was initially brought to the hospital with abdominal pain had a CT of the abdomen pelvis performed on 10/03/2023 which revealed swirling of central mesentery with abnormal position of the leads. Diffuse mesenteric edema with moderate wall thickening. Small amount of ascites within the pelvis. Multiple mildly enlarged mesenteric lymph nodes. Findings are nonspecific. Oncology has been consulted to assist in management of this patient with abdominal lymphadenopathy. Allergies Allergy/AdvReac Type Severity Reaction Status Date / Time No Known Allergies Allergy Verified 07/27/21 06:35 Home Medications Medication Instructions Recorded Confirmed Type atorvastatin 20 mg tablet 20 mg PO DAILY 06/17/21 10/03/23 History vitamins A,C,X-rqdp-plafno 4,296 1 cap PO PM 07/21/21 10/03/23 History mcg-226 mg-90 mg capsule (PreserVision AREDS) calcium carbonate 1,000 mg PO DAILY 10/03/23 10/03/23 History calcium carbonate 500 mg PO PM 10/03/23 10/03/23 History cholecalciferol (vitamin D3) 25 25 mcg PO DAILY 10/03/23 10/03/23 History mcg (1,000 unit) capsule (Vitamin D3) citalopram 40 mg tablet 40 mg PO DAILY 10/03/23 10/03/23 History finasteride 5 mg tablet 5 mg PO DAILY 10/03/23 10/03/23 History omeprazole 20 mg capsule,delayed 20 mg PO DAILY 10/03/23 10/03/23 History release tamsulosin 0.4 mg capsule 0.4 mg PO DAILY 10/03/23 10/03/23 History cyanocobalamin (vitamin B-12) 100 100 mcg PO DAILY #30 tabs 10/05/23 Rx mcg tablet ferrous sulfate 325 mg (65 mg 325 mg PO DAILY #30 tabs 10/05/23 Rx iron) tablet hydrochlorothiazide 25 mg tablet 12.5 mg (1/2 x 25 mg) PO QAM #15 10/05/23 Rx tabs lisinopril 10 mg tablet 10 mg PO QAM #30 tabs 10/05/23 Rx Patient History Medical History (Updated 10/04/23 @ 11:06 by Jonh Valverde MD) Hypomagnesemia BPH (benign prostatic hyperplasia) Hypocalcemia Chronic Chronic anemia Diabetes mellitus, type 2 NO MEDS AT THIS TIME *WAS ON METFORMIN IN THE PAST Depression GERD (gastroesophageal reflux disease) Hyperlipidemia Hypertension Surgical History Nausea and vomiting after administration of anesthetic agent H/O prostate biopsy History of esophagogastroduodenoscopy (EGD) H/O umbilical hernia repair History of tooth extraction History of tonsillectomy and adenoidectomy History of nasal cauterization Family History Mother Family history of diabetes mellitus Father Family history of diabetes mellitus Other Family history non-contributory No family history of adverse response to anesthesia Social History Smoking Status: Former smoker Second Hand Exposure: No; Do You Dip or Chew Tobacco: No; Hx Alcohol Use: Yes Alcohol type: beer and wine Hx Substance Use: No Preferred Language: Tajik Communication Ability: Effective Extrusion Press Supervisor Required: No Beliefs That Will Affect Care: None Current Living Situation: Spouse Current Living Situation Comment: LIVES AT HOME "SHE HAS MEMORY PROBLEMS" Feels Safe at Home: Yes Assistive Devices: None Review of Systems Review of Systems: All systems reviewed & are unremarkable except as noted in HPI & below Constitutional: as per Subjective / HPI Eyes: as per Subjective / HPI Ear, Nose, Mouth, Throat: as per Subjective / HPI Respiratory: as per Subjective / HPI Cardiovascular: as per Subjective / HPI Gastrointestinal: as per Subjective / HPI Genitourinary: + as per Subjective / HPI Musculoskeletal: as per Subjective / HPI Integumentary: as per Subjective / HPI Neurologic: as per Subjective / HPI Endocrine: as per Subjective / HPI Results & Data Vital Signs (Past 12 Hours) Vital Signs Temp Pulse Pulse Resp BP Pulse Ox O2 Del Method 10/04/23 15:44 36.7 C 63 18 153/73 H 99 Room Air 10/04/23 15:20 69 10/04/23 11:06 36.3 C L 70 18 163/70 H 97 Room Air 10/04/23 07:36 36.7 C 73 18 164/77 H 96 Room Air 10/04/23 07:00 69
[2023-10-05 07:23] LABS: BUN Creatinine Ratio 12.9 (10-20); Calcium 8.5 mg/dl (8.6-10.3); Creatinine Clr Calc Pharmacy 61.6 ml/min; Est GFR (African American) 95.4 ml/min; Est GFR (Non-African American) 82.3 ml/min; Potassium 3.7 mmol/L (3.5-5.1)
[2023-10-05 07:38] LABS: Basophils # (auto) 0.02 K/uL (0.00-0.20); Basophils % (auto) 0.7 %; Hematocrit (blood only) 25.8 % (42.0-52.0); Hemoglobin 8.8 g/dl (14.0-18.0); Immature Granulocytes # (auto) 0.01 K/uL (0.01-0.20); Immature Granulocytes % (auto) 0.4 %; Lymphocytes # (auto) 0.78 K/uL (1.20-3.40); Lymphocytes % (auto) 29.2 %; Mean Corpuscular Hemoglobin 31.8 pg (25.0-34.0); Mean Corpuscular Hgb Conc 34.1 g/dL (32.0-36.0); Mean Corpuscular Volume 93.1 fL (80.0-100.0); Mean Platelet Volume 12.5 fL (9.4-12.4); Monocytes # (auto) 0.19 K/uL (0.11-0.59); Monocytes % (auto) 7.1 %; Neutrophils # (auto) 1.67 K/uL (1.40-6.50); Neutrophils % (auto) 62.6 %; Platelet Count 61 K/uL (130-400); RDW Coefficient of Variation 13.6 % (11.5-14.5); Red Blood Count 2.77 M/uL (4.70-6.10); White Blood Count 2.67 K/ul (4.8-10.8)
[2023-10-05 07:42] LABS: Ferritin 169.5 ng/ml (8-388)
[2023-10-05 07:45] LABS: Folate (Folic Acid),Ser orPlas > 22.30 ng/ml (>5.38)
[2023-10-05 07:46] LABS: Vitamin B12 501 pg/ml (180-914)
[2023-10-05] MEDS: PANTOprazole 40 MG TAB PO SCH (08:16)
[2023-10-05] MEDS: ATORVASTATIN 20 MG TAB PO SCH (08:17)
--- NOTE | 2023-10-05 11:55 | Surgery Progress Note ---
Date of Service October 05, 2023 Assessment & Plan (1) Midgut volvulus: Plan: Pt doing well, no pain, no elevation in wbc Abd non tender , had BM today tolerating clears , no n/v Will advance to low fiber for lunch if tolerates maybe discharged from a surgical standpoint today. No need for outpatient follow up. Admission and Anticipated Discharge Date Admission Date: October 03, 2023 Supervising Physician Co-Signing Physician Notes I personally saw and evaluated the patient with Niko VALADEZ and agree with the assessment and plan. [address] findings of possible midgut volvulus Continues to improve and without abdominal pain He had a BM He can have a low fiber diet and be discharged if he tolerates this No need for surgical follow up Surgery will sign off at this time, please call with any questions or concerns Subjective Pt feeling well no n/v , fever chills, no abd pain +BM Review of Systems Constitutional: no fever and no chills Respiratory: no dyspnea Gastrointestinal: no abdominal pain, no nausea and no vomiting Physical Exam Constitutional: cooperative and comfortable; no acute distress Gastrointestinal (Abdomen): Inspection/Auscultation: abdomen not distended Percussion/Palpation: abdomen soft; abdomen nontender Results & Data Vital Signs (Past 12 Hours) Vital Signs Temp Pulse Pulse Resp BP Pulse Ox O2 Del Method 10/05/23 11:13 97.9 F 62 14 171/74 H 97 Room Air 10/05/23 07:32 97.9 F 63 13 180/74 H 97 Room Air 10/05/23 07:00 61 10/05/23 03:24 97.5 F L 61 18 175/71 H 94 Room Air 10/05/23 01:13 60 10/04/23 23:56 97.7 F 59 L 18 172/81 H 96 Room Air Results Complete Blood Count Results: RBC 2.77 M/uL (4.70-6.10) L 10/05/23 WBC 2.67 K/ul (4.8-10.8) L 10/05/23 Hgb 8.8 g/dl (14.0-18.0) L 10/05/23 Hct 25.8 % (42.0-52.0) L 10/05/23 Plt Count 61 K/uL (130-400) L 10/05/23 PG Care Time/CCT Total # of Minutes Spent Total Time Spent with Patient: Total time spent is greater than 50% in coordination of care (as documented) at patient's floor/unit and/or counseling patient: Coding Level of Care Code 52571 SUB INP/OBS CARE 25MIN 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
[2023-10-05] MEDS: hydroCHLOROthiazide 25 MG TAB PO SCH (12:45)
--- NOTE | 2023-10-05 14:50 | Discharge Summary ---
Date of Service October 05, 2023 Admission HPI Per Admitting Provider Patient is 78-year-old male with PMH HTN, HLD, DM II, chronic anemia, GERD, BPH, depression, central tremor, chronic hypocalcemia presented to ER with complaint of abdominal pain. History obtained from patient, patient's son, inpatient and outpatient chart review. Reports has been having intermittent pain abdomen for years, however abdominal pain seems more persistent last couple of weeks. Patient states will have pain one day and then improves for 2 days and then returns. Tried gas-x with limited relief. States States ate pizza fpr lunch and since with worsening abdominal pain, nausea, vomiting and diarrhea. Also with sweats today and pain more severe with vomiting and diarrhea so came to ER for evaluation. Points to pain periumbilical that radiates up to epigastric and describes pain as "Throbbing and sharp". Denies any known fever. Denies CP, SOB. Reports history vertigo and had PT recently with improvement. States no vertigo or PT for past couple of weeks. History cholecystectomy. Denies hematemesis, hematochezia, ALVA, dizziness, syncope, palpitations, cough, sore throat, rhinorrhea, weakness, extremity edema, rashes, urinary symptoms. Admission Exam Per Admitting Provider General: no acute distress, WDWN Head: normocephalic, atraumatic Eyes: conjunctiva non-injected, anicteric ENT: hard of hearing, normal inspection external ears, nose, mucous membranes moist Neck: supple, trachea midline, non-tender Lungs: clear, no respiratory distress, no wheezing/rhonchi/rales CV: RRR, no pretibial edema Abd: hyperactive BS, soft, +tenderness to palpation periumbilical without guardingn Ext: no cyanosis, no calf tenderness Neuro: A&O x 3, no focal deficits noted, normal affect Skin: warm, dry Principal Diagnosis Midgut volvulus History of pancytopenia Discharge Exam Constitutional: WD/WN, vitals as above, NAD, sitting up in bed, pleasant, conversing easily Respiratory: normal respiratory effort, lungs clear to auscultation, no wheeze, rales, rhonchi. Normal insp/exp effort, no accessory muscle use Cardiovascular: RRR, no murmur, no edema Vessels: no JVD or carotid bruit Chest: normal inspection of chest Abdomen: Soft, nontender, bowel sound present Musculoskeletal: no cyanosis or clubbing, extremities motor strength 5/5 Skin: no rashes, warm and dry normal turgor Neurologic: PERRL, EOMI, accommodation nl, no face palsy, no dysarthria CN's II- XI intact bilaterally and moves all extremities Psychiatric: A+Ox3, euthymic affect Discharge Data Allergies Allergy/AdvReac Type Severity Reaction Status Date / Time No Known Allergies Allergy Verified 07/27/21 06:35 Consultations 10/03/23 16:38 Consult General Surgery Stat 10/03/23 16:44 ED Decision to Admit Stat 10/03/23 18:54 Consult General Surgery Routine 10/04/23 11:08 Consult Hematology Routine Ordered Studies 10/03/23 15:33 CT abd pelvis IV con only Stat Hospital Course (1) Abdominal pain: Per prior attending with addendum: Patient is 78-year-old male with PMH HTN, HLD, DM II, chronic anemia, GERD, BPH, depression, central tremor, chronic hypocalcemia presented to ER with complaint of worsening abdominal pain for 1 day along with nausea vomiting and diarrhea. In ER afebrile, vitals stable. WBC: 3.7. Lactate WNL, lipase WNL, UA unremarkable CT abdomen pelvis on presentation; swirling of the central mesentery with abnormal position of the ligament of Treitz. Diffuse mesenteric edema with moderate wall thickening of several jejunal loops. Small amount of ascites within the pelvis. 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 Multiple mildly enlarged mesenteric lymph nodes. This finding is nonspecific and could be related to engorgement related to venous congestion. A lymphoproliferative process is also within the differential. Stable mild splenomegaly. Evaluated by surgery; patient reports improvement in abdominal pain; no nausea or vomiting Diet advanced to clear liquid diet Continue to monitor for any abdominal pain or discomfort, nausea/vomiting. Continue empiric antibiotic for the time being (2) Pancytopenia: Review of blood work reveals pancytopenia that has been going on for few years. Outpatient lab work confirms the same. WBC of 3.83, hemoglobin of 8.6 and platelet count of 62,000 CT abdomen pelvis also shows multiple enlarged menstrual lymph nodes. Will obtain peripheral blood smear, vitamin B12 and folic acid level, serum iron, ferritin level I discussed finding with patient and patient's son at bedside. They report that the have not been told of any such history in the past by previous physicians. Will obtain routine hematology consultation to establish care and further workup. (3) Diabetes mellitus, type 2: Diet controlled A1c: 6.5 on 01/11/2023 NovoLog sliding scale correction only for now as is n.p.o. (4) Hypertension: BP is elevated in ER Previously was on lisinopril however patient does not believe he has been taking and has not been it filled at pharmacy for quite some time. Restarted on lisinopril 10 mg once a day (5) Hypomagnesemia: Acute on chronic hypomagnesemia Chronic hypomagnesemia thought secondary to PPI use. Previously on oral magnesium supplement however was discontinued several months ago secondary to GI side effects Magnesium: 1.2 on admission 1.7 today (6) Hypocalcemia: Chronic hypocalcemia On chronic calcium supplement and vitamin D supplement Calcium of 8.3 today (7) Hyperlipidemia: Continue Lipitor (8) BPH (benign prostatic hyperplasia): Continue finasteride, tamsulosin (9) GERD (gastroesophageal reflux disease): Continue PPI (10) Depression: Continue citalopram DVT Prophylaxis SCDs DNR/DNI as per discussion with pt Follows with Dr Latonia Sousa for routine care Discussed with patient's son at bedside. Answered questions/queries Plan Addendum 10/05/23: Patient was seen and examined at bedside as a follow-up of midgut volvulus, history of pancytopenia, hypertension. Patient has moved bowel, and has been tolerating advancement of diet well. Patient tolerating low fiber diet without any abdominal pain. From surgical standpoint, patient is okay to be discharged. No signs or symptoms of infection, patient has been afebrile, WBC has been about his baseline. Patient's blood pressure has been elevated, lisinopril was added without much improvement in the blood pressure, hydrochlorothiazide again added. Blood pressure better controlled at this point, patient to follow-up with PCP for long-term monitoring/management. Patient to follow-up with hemato logy as an outpatient for recent history of pancytopenia. Patient will be started on iron supplement and vitamin B12 supplement on discharge. He is being discharged with following instruction at the point of discharge: Follow-up with your primary care physician within a week time and likely you will need labs CBC/CMP/magnesium/phosphorus. For your bowel condition [midgut volvulus], continue with low fiber soft diet for next 5 to 7 days before progressing to your regular consistency diet. For your history of pancytopenia, follow-up with hematology as an outpatient in about a month time. You can continue to take [id number] laxative and stool softener with a goal of 1-2 bowel movements a day. You will be started on iron tablet and vitamin B12 supplement. For the sake of simplicity, continue to take both of these supplements about 5 days from discharge. Your blood pressure has been on the higher side, you have been put on lisinopril and hydrochlorothiazide. Continue to measure your blood pressure twice a day, maintain a log to take to your primary care physician within a week time for further/ongoing management of your blood pressure. Take your medications as prescribed. Please make sure that you are able to get your medications today by calling your pharmacy before you leave the hospital so that your treatment continuity is not broken. Home Health Attestation I certify that this patient is under my care and that I, or a physicians admissions assistant working with me, had a face to-face encounter that meets the home health [id number] encounter requirements with this patient. The encounter with the patient was in whole, or in part, for the following medical condition, which is the primary reason for home health care (list medical condition): I certify that, based on my findings, the following services are medically necessary home health services: My clinical findings support the need for the above services because: Further, I certify that my clinical findings support that this patient is homebound (i.e. absences from home require considerable and taxing effort and are for medical reasons or temple services or infrequently or of short duration when for other reasons) because: Certification for Home Health Services: Based on the above findings, I certify that this patient is confined to the home and needs intermittent care home care, physical therapy and/or speech therapy or continues to need occupational therapy. The patient is under my care, and I have initiated the establishment of the plan of care. This patient will be followed by a physician who will periodically review the plan of care. Total Time Total Time Spent Total Time Spent (In Minutes): 45 Discharge Plan Discharge Items Patient Disposition: Home - Self-Care Reason For Visit: ABDOMINAL PAIN Discharge Diagnosis: Midgut volvulus History of pancytopenia Activity: Resume your previous activity Non-emergency contact: Primary Care Provider Call non-emergency contact if: you have any medication questions, your symptoms worsen and your temperature is above 101 Follow-up/Referrals: Latonia Sousa MD [Primary Care Provider] - (Date & Time 10/11/2023 2:00 PM Provider Latonia Sousa MD [facility] ) Diet: Low Fiber Addtl Attending Provider Instructions: Follow-up with your primary care physician within a week time and likely you will need labs CBC/CMP/magnesium/phosphorus. For your bowel condition [midgut volvulus], continue with low fiber soft diet for next 5 to 7 days before progressing to your regular consistency diet. For your history of pancytopenia, follow-up with hematology as an outpatient in about a month time. You can continue to take [id number] laxative and stool softener with a goal of 1-2 bowel movements a day. You will be started on iron tablet and vitamin B12 supplement. For the sake of simplicity, continue to take both of these supplements about 5 days from discharge. Your blood pressure has been on the higher side, you have been put on lisinopril and hydrochlorothiazide. Continue to measure your blood pressure twice a day, maintain a log to take to your primary care physician within a week time for further/ongoing management of your blood pressure. Take your medications as prescribed. Please make sure that you are able to get your medications today by calling your pharmacy before you leave the hospital so that your treatment continuity is not broken. Pending Studies at Discharge: No Stand-Alone Forms: My [facility] [employer], Smoking Cessation Medications and DC Order Prescriptions: New lisinopril 10 mg Tablet 10 mg PO QAM Qty: 30 0RF hydrochlorothiazide 25 mg Tablet 12.5 mg PO QAM Qty: 15 0RF ferrous sulfate 325 mg (65 mg iron) tablet 325 mg PO DAILY Qty: 30 0RF cyanocobalamin (vitamin B-12) 100 mcg tablet 100 mcg PO DAILY Qty: 30 0RF Continued atorvastatin 20 mg tablet 20 mg PO DAILY PreserVision AREDS [id number] Capsule 1 cap PO PM tamsulosin 0.4 mg capsule 0.4 mg PO DAILY omeprazole 20 mg capsule,delayed release(DR/EC) 20 mg PO DAILY Rx Instructions: Last picked up in Jul 2023. finasteride 5 mg tablet 5 mg PO DAILY citalopram 40 mg tablet 40 mg PO DAILY calcium carbonate 500 mg calcium (1,250 mg) Tablet 1,000 mg PO DAILY calcium carbonate 500 mg calcium (1,250 mg) Tablet 500 mg PO PM cholecalciferol (vitamin D3) [Vitamin D3] 25 mcg (1,000 unit) Capsule 25 mcg PO DAILY Discharge Orders: Discharge Order (Routine); Ordered 10/05/23 Ordered By: Tala Coronel/Other Patient Handouts: Managing Type 2 Diabetes Admission Data Admit Date/Time: 10/03/23 17:43 Attending Provider: Tala Castro Admit Provider: Igor Muñoz Primary Care Provider: Latonia Sousa Other Providers: Abhinav Young; Igor Muñoz; Mehdi Vergara
== END 2023-10-05 15:49 | disposition home or self-care (01) | DRG 389 ==
LOC: ED 15:16 → SUATTDRO 17:43 → EDINP 17:43 → 2N 18:43